=== PATIENT | male | born 1960 | race Caucasian/White ===

== ENCOUNTER 2025-04-21 08:15 | Inpatient (IN) | payer BC, SELFPAY ==
[2025-04-21] VITALS (71 sets, daily range): BP systolic 79–201; BP diastolic 50–130; PULSE 49–124; RESP 0–36; TEMP 36.3–36.6; O2SAT 54–99; BMI 35.6
--- NOTE | 2025-04-21 08:20 | EKG_ITS ---
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
--- NOTE | 2025-04-21 08:34 | EKG_ITS ---
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
--- NOTE | 2025-04-21 08:38 | XR_ITS ---
Examination: AP chest single view Technique one AP portable upright chest single view Date and time: April 21, 2025, 0843 hrs. Indications: Chest pain shortness of breath today. Findings: Mild to moderate CHF. Mild enlargement cardiac contour. Prominent vascular congestion. Bilateral septal pulmonary edema. Impression: Mild to moderate CHF.
--- NOTE | 2025-04-21 08:42 | PD.EDSOB ---
ED SOB =RME/HPI General Chief Complaint: Shortness of Breath/Dyspnea Stated Complaint: SOB since this morning Time Seen by Provider: 04/21/25 08:39 Arrival date/time: 04/21/25 08:15 RME / HPI RME / HPI Narrative: DR. GODWIN MAIN ED EVALUATION: This section includes all my notes and documentations, including HPI, PE, and ED course.? Fer Godwin MD HPI: 64 year old male with HTN here with several days of chest pressure and severely worsening dyspnea since yesterday. Uncertain about orthopnea. Increased leg swelling. No other complaints. ROS: All negative except as documented in HPI. Physical Exam: General: Appears lethargic with respiratory distress. Eyes:? Conjunctivae and lids clear. ENT:? No nasal congestion.? ? Neck:? Supple. Heart:? RRR. Lungs: Moderate respiratory distress.? Decreased air movement with rales. Abdomen:? Soft and nontender.? Skin:? Warm and dry.? Neuro:? Alert and oriented X 3.? I reviewed all diagnostic test results. My interpretation of the EKG is sinus rhythm with no acute ST?T changes. My interpretation of the chest x-ray is increased vascular congestion. Blood tests and urine tests remarkable for lactic acid 3.1, BNP 375. ABG showed pH 6.96, pCO2 84, and pHCO3 19. COVID/influenza negative. At this point, diagnoses include respiratory failure. Treatment here included intubation (see procedure note), DuoNeb and Solu-Medrol, Rocephin and Zithromax, metoprolol, morphine, and Lasix. For intubation, we needed etomidate and succinylcholine and rocuronium and propofol drip. I discussed the case with our senior project leader/team lead Dr. Levine.? About the presentation and exam and diagnostics and treatments here.? And need of further care in the hospital. Accepted the patient. Fer Godwin MD Related Data Allergies Allergy/AdvReac Type Severity Reaction Status Date / Time aspirin Allergy Verified 04/21/25 08:18 bee stings Allergy Uncoded 04/21/25 08:18 Course Quality Measures none Orders Category Date Time Status Admit to Inpatient Status Routine Admission 04/21/25 11:27 Active Patient Condition Routine Admission 04/21/25 11:27 Ordered Aspiration precautions NOW Care 04/21/25 11:28 Active Bedside COVID-19 Antigen Test NOW Care 04/21/25 08:34 Active Bedside Influenza A&B Antigen Test NOW Care 04/21/25 08:35 Completed COVID-19 Screening Questionnaire NOW Care 04/21/25 09:49 Active Continuous Pulse Oximetry NOW Care 04/21/25 11:27 Active Decision to Admit X1 Care 04/21/25 09:49 Completed EKG (ED ONLY) *Do not use* NOW Care 04/21/25 08:20 Completed Insert IV NOW Care 04/21/25 08:49 Completed Intubation NOW Care 04/21/25 09:25 Completed Miscellaneous Nursing Order NOW Care 04/21/25 11:27 Active NPO NOW Care 04/21/25 11:28 Active Notify provider NEEDED Care 04/21/25 11:27 Active Obtain weight daily Care 04/21/25 11:28 Active Saline [Insert IV] NOW Care 04/21/25 08:35 Active Sequential Compression Device QSHIFT Care 04/21/25 11:32 Active Strict Intake and Output Routine Care 04/21/25 11:28 Ordered Urinary Catheter QS Care 04/21/25 11:27 Active Diet NPO (NOW) Diet 04/21/25 11:28 Active CA echo doppler complete Stat Exams 04/21/25 11:32 Ordered EKG (ED Only) Stat Exams 04/21/25 08:20 Draft EKG (ED Only) Stat Exams 04/21/25 08:34 Stop Req XR chest 1V portable Stat Exams 04/21/25 08:38 Completed XR chest 1V post procedure Stat Exams 04/21/25 09:46 Completed ABG [Arterial Blood Gas] Stat Lab 04/21/25 09:37 Ordered ABG [Arterial Blood Gas] Stat Lab 04/21/25 09:53 Completed Alcohol, Blood Medical Stat Lab 04/21/25 08:45 Completed BNP [B-Type Natriuretic Peptide] Stat Lab 04/21/25 08:45 Completed Bilirubin,Direct Stat Lab 04/21/25 08:45 Completed Blood Culture (Lab) Stat Lab 04/21/25 09:51 Received CBC AM DRAW Lab 04/22/25 05:00 Ordered CBC AM DRAW Lab 04/23/25 05:00 Ordered CBC AM DRAW Lab 04/24/25 05:00 Ordered CBC AM DRAW Lab 04/25/25 05:00 Ordered CBC AM DRAW Lab 04/26/25 05:00 Ordered CBC AM DRAW Lab 04/27/25 05:00 Ordered CBC AM DRAW Lab 04/28/25 05:00 Ordered CBC Stat Lab 04/21/25 08:45 Completed CMP [Comprehensive Metabolic Panel] AM DRAW Lab 04/22/25 05:00 Ordered CMP [Comprehensive Metabolic Panel] AM DRAW Lab 04/23/25 05:00 Ordered CMP [Comprehensive Metabolic Panel] AM DRAW Lab 04/24/25 05:00 Ordered CMP [Comprehensive Metabolic Panel] AM DRAW Lab 04/25/25 05:00 Ordered CMP [Comprehensive Metabolic Panel] AM DRAW Lab 04/26/25 05:00 Ordered CMP [Comprehensive Metabolic Panel] AM DRAW Lab 04/27/25 05:00 Ordered CMP [Comprehensive Metabolic Panel] AM DRAW Lab 04/28/25 05:00 Ordered CMP [Comprehensive Metabolic Panel] Stat Lab 04/21/25 08:45 Completed CRP [C-Reactive Protein] Stat Lab 04/21/25 08:45 Completed D-Dimer Stat Lab 04/21/25 08:45 Completed Drug Screen,Urine Stat Lab 04/21/25 09:43 Completed ESR [Sed Rate (ESR)] Stat Lab 04/21/25 08:45 Completed Free T4 (Free Thyroxine) Stat Lab 04/21/25 08:45 Completed Lactate (Lactic Acid) Stat Lab 04/21/25 08:45 Results Magnesium AM DRAW Lab 04/22/25 05:00 Ordered Magnesium AM DRAW Lab 04/23/25 05:00 Ordered Magnesium AM DRAW Lab 04/24/25 05:00 Ordered Magnesium AM DRAW Lab 04/25/25 05:00 Ordered Magnesium AM DRAW Lab 04/26/25 05:00 Ordered Magnesium AM DRAW Lab 04/27/25 05:00 Ordered Magnesium AM DRAW Lab 04/28/25 05:00 Ordered Magnesium Stat Lab 04/21/25 08:45 Completed PT [Prothrombin Time with INR] Stat Lab 04/21/25 08:45 Completed PTT [Partial Thromboplastin Time] Stat Lab 04/21/25 08:45 Completed Phosphorous AM DRAW Lab 04/22/25 05:00 Ordered Phosphorous AM DRAW Lab 04/23/25 05:00 Ordered Phosphorous AM DRAW Lab 04/24/25 05:00 Ordered Phosphorous AM DRAW Lab 04/25/25 05:00 Ordered Phosphorous AM DRAW Lab 04/26/25 05:00 Ordered Phosphorous AM DRAW Lab 04/27/25 05:00 Ordered Phosphorous AM DRAW Lab 04/28/25 05:00 Ordered Procalcitonin Stat Lab 04/21/25 08:45 Completed Sputum Culture and Gram Stain Stat Lab 04/21/25 09:48 Received TSH [Thyroid Stimulating Hormone] Stat Lab 04/21/25 08:45 Completed Troponin I Stat Lab 04/21/25 08:45 Completed UA, C/S IF [Urinalysis, C/S if Indicated] Stat Lab 04/21/25 09:41 Completed Acetaminophen Tab [Tylenol Tab] Med 04/21/25 11:27 Active 650 mg PO Q6H PRN Albuterol/Ipratr Rt Sheryl [Duoneb Rt Sheryl] Med 04/21/25 08:35 Discontinued 3 ml INH X1 ONE Azithromycin Inj [Zithromax Inj] 500 mg Med 04/21/25 09:51 Discontinued Sodium Chloride 0.9% 250 ml [Ns] 250 ml IV X1 Etomidate Inj [Amidate Inj] Med 04/21/25 09:15 Discontinued 20 mg .ROUTE .STK-MED ONE Etomidate Inj [Amidate Inj] Med 04/21/25 09:19 Discontinued 40 mg IVP X1 ONE Furosemide Inj [Lasix Inj] Med 04/21/25 10:19 Discontinued 80 mg IVP X1 ONE Heparin Inj Med 04/21/25 14:00 Active 5,000 unit SC Q8HR MethylPREDNISolone.* [SoluMEDROL Inj] Med 04/21/25 08:35 Discontinued 125 mg IVP X1 ONE Metoprolol Tartrate Inj [Lopressor Inj] Med 04/21/25 08:35 Discontinued 5 mg IVP X1 ONE Morphine Inj Med 04/21/25 08:37 Discontinued 2 mg IVP X1 ONE Pantoprazole Inj [Protonix Inj] Med 04/21/25 11:30 Active 40 mg IVP QDAY Propofol 1,000 mg Ivpb [Diprivan Ivpb] Med 04/21/25 09:30 Active 1,000 mg in 100 ml IV 5 mcg/kg/min Rocuronium Inj [Zemuron Inj] Med 04/21/25 09:21 Discontinued 100 mg .ROUTE .STK-MED ONE Rocuronium Inj [Zemuron Inj] Med 04/21/25 09:29 Discontinued 100 mg IV X1 ONE Rocuronium Inj [Zemuron Inj] Med 04/21/25 09:29 Discontinued 100 mg IV X1 ONE Senna [Senokot] Med 04/21/25 11:27 Active 1 tab PO BID PRN Succinylcholine Inj [Anectine Inj] Med 04/21/25 09:19 Discontinued 200 mg IV X1 ONE cefTRIAXone/D5w 1gm IV premix [Rocephin/D5w 1gm IV Med 04/21/25 09:51 Discontinued premix] 1 gm in 50 ml IV X1 Code Status Routine Oth 04/21/25 11:27 Ordered Mechanical [Volume Ventilator] Stat RT 04/21/25 Active Vital Signs Vital signs: Vital Signs Temperature 97.8 F 04/21/25 08:25 Pulse Rate 113 H 04/21/25 08:25 Blood Pressure 174/101 H 04/21/25 08:25 Pulse Oximetry (%) 88 L 04/21/25 08:25 Oxygen Delivery Method Room Air 04/21/25 08:25 PROCEDURES: Intubation Time out performed: Yes sedative: Etomidate Mg Given: 30 paralytic: Succinylcholine Mg Given: 200 Laryngoscope: Hany (#4) Assist Device Used: other (glidescope) ET Tube Size: 7.5 ET Tube Uncuffed: No Tube Secured Depth (cm): 24 Tube Secured Location: teeth Tube Placement Confirmation: visualized tube passing through cords, equal breath sounds bilaterally, no breath sounds over epigastrium and confirmation by capnometry Patient Tolerated Procedure: well and no complications Intubation Complications: none Shortness of Breath / Dyspnea MDM Narrative MDM Narrative:: Renée Munoz am scribing for and in the presence of Dr. Godwin. 64 year old male with past medical history for hypertension coming in for chest pain onset several days and shortness of breath since yesterday. No other complaints reported. Patient data External records reviewed:: None (no previous visits) Clinical information provided by:: patient Social determinants that could affect healthcare access:: none Patient has the following chronic illnesses:: hypertension How is presenting disease/condition affected by chronic disease/condition?: exacerbated by Evaluation data The following diagnostics were reviewed and interpreted by me:: lab results, radiology exam(s) and EKG tracing(s) Lab and/or radiology exams considered but not ordered:: none Interpretation Summary: I reviewed all diagnostic test results. My interpretation of the EKG is sinus rhythm with no acute ST?T changes. My interpretation of the chest x-ray is increased vascular congestion. Blood tests and urine tests remarkable for lactic acid 3.1, BNP 375. ABG showed pH 6.96, pCO2 84, and pHCO3 19. COVID/influenza negative. Medications / Prescriptions Medications or Prescriptions considered but not ordered:: none Medication administrations:: Medication Administration History Acetaminophen (Acetaminophen 325 Mg Tablet) 650 mg PO Q6H PRN PRN Reason: Pain (1-3) & Fever >100.4 Stop: 05/21/25 11:26 Heparin Sodium (Porcine) (Heparin Sod Inj 5000 Unit/Ml Vial) 5,000 unit SC Q8HR [facility] Stop: 05/05/25 13:59 Propofol (Diprivan Ivpb) 1,000 mg in 100 mls @ 3.377 mls/hr IV .Q24H PRN; Protocol PRN Reason: PER PROTOCOL Stop: 05/21/25 09:29 Last Titration: 04/21/25 09:50 Dose: 20 mcg/kg/min, 13.51 mls/hr Documented By: Titration: 04/21/25 09:45 Dose: 15 mcg/kg/min, 10.132 mls/hr Documented By: Titration: 04/21/25 09:40 Dose: 10 mcg/kg/min, 6.755 mls/hr Documented By: Admin: 04/21/25 09:35 Dose: 5 mcg/kg/min, 3.377 mls/hr Documented By: VG Co-signed By: DO Pantoprazole Sodium (Pantoprazole Inj 40 Mg Vial) 40 mg IVP QDAY [facility] Stop: 05/21/25 11:29 Sennosides (Senna Tablet) 1 tab PO BID PRN; Protocol PRN Reason: CONSTIPATION Stop: 05/21/25 11:26 Discontinued Medications Albuterol/Ipratropium (Albuterol/Ipratropium (Duoneb) Rt Sheryl 3 Ml Nebu) 3 ml INH X1 ONE Stop: 04/21/25 08:36 Last Admin: 04/21/25 10:32 Dose: Not Given Documented By: VG Non-Admin Reason: Discontinued Etomidate (Etomidate Inj 2 Mg/Ml Vial 10 Ml) 40 mg IVP X1 ONE Stop: 04/21/25 09:20 Last Admin: 04/21/25 09:22 Dose: 40 mg Documented By: VG Etomidate (Etomidate Inj 2 Mg/Ml Vial 10 Ml) Confirm Administered Dose 20 mg .ROUTE .STK-MED ONE Stop: 04/21/25 09:16 Last Admin: 04/21/25 09:28 Dose: Not Given Documented By: VG Non-Admin Reason: Duplicate Medication on eMAR Furosemide (Furosemide Inj 10 Mg/Ml 4ml Vial) 80 mg IVP X1 ONE Stop: 04/21/25 10:20 Last Admin: 04/21/25 10:38 Dose: 80 mg Documented By: VG Azithromycin 500 mg/ Sodium (Chloride) 250 mls @ 250 mls/hr IV X1 ONE Stop: 04/21/25 10:50 Last Admin: 04/21/25 11:09 Dose: 250 mls/hr Documented By: VG Ceftriaxone Sodium/Dextrose (Rocephin/D5w 1gm Iv Premix) 1 gm in 50 mls @ 100 mls/hr IV X1 ONE Stop: 04/21/25 10:20 Last Infusion: 04/21/25 11:00 Dose: Infused Documented By: Admin: 04/21/25 10:18 Dose: 100 mls/hr Documented By: VG Methylprednisolone Sodium Succinate (Methylprednisolone Sod Succ 62.5 Mg/Ml 2ml Vial) 125 mg IVP X1 ONE Stop: 04/21/25 08:36 Last Admin: 04/21/25 09:08 Dose: 125 mg Documented By: VG Metoprolol Tartrate (Metoprolol Tartrate Inj 1 Mg/Ml Amp 5 Ml) 5 mg IVP X1 ONE Stop: 04/21/25 08:36 Last Admin: 04/21/25 09:05 Dose: 5 mg Documented By: VG Morphine Sulfate (Morphine Sulf Inj 10 Mg/Ml Vial) 2 mg IVP X1 ONE Stop: 04/21/25 08:38 Last Admin: 04/21/25 09:11 Dose: 2 mg Documented By: VG Rocuronium Protivin (Rocuronium Inj 10 Mg/Ml Vial 10 Ml) 100 mg IV X1 ONE Stop: 04/21/25 09:30 Last Admin: 04/21/25 09:30 Dose: 100 mg Documented By: DINESH Co-signed By: NORAH Rocuronium Protivin (Rocuronium Inj 10 Mg/Ml Vial 10 Ml) 100 mg IV X1 ONE Stop: 04/21/25 09:30 Last Admin: 04/21/25 09:33 Dose: Not Given Documented By: DINESH Non-Admin Reason: Duplicate Medication on eMAR Rocuronium Protivin (Rocuronium Inj 10 Mg/Ml Vial 10 Ml) Confirm Administered Dose 100 mg .ROUTE .STK-MED ONE Stop: 04/21/25 09:22 Last Admin: 04/21/25 09:32 Dose: Not Given Documented By: DINESH Non-Admin Reason: Duplicate Medication on eMAR Succinylcholine Chloride (Succinylcholine Inj 20 Mg/Ml Vial 10 Ml) 200 mg IV X1 ONE Stop: 04/21/25 09:20 Last Admin: 04/21/25 09:23 Dose: 200 mg Documented By: DINESH Treatment here included intubation (see procedure note), DuoNeb and Solu-Medrol, Rocephin and Zithromax, metoprolol, morphine, and Lasix. For intubation, we needed etomidate and succinylcholine and rocuronium and propofol drip. Consultations Consultation(s) initiated? (list below): Yes Consultation #1 (Physician, Specialty, Details): I discussed the case with our senior project leader/team lead Dr. Levine.? About the presentation and exam and diagnostics and treatments here.? And need of further care in the hospital. Accepted the patient. Diagnosis Shortness of Breath Differential Diagnosis: acute exacerbation of chronic obstructive airways disease, congestive heart failure, community acquired pneumonia, asthma with exacerbation, pulmonary embolism and other (NE, sepsis) Most likely diagnosis given after review of the tests above:: Respiratory failure Admission Indicated Admission indicated?: indicated Explain why admission is indicated or not indicated:: Respiratory failure Admission Request Was there a request for admission?: Yes Admission Attestation Admission request attestation: Discussed case with ICU service service regarding admission. Discussed patients ED course, exam findings, labs, and radiology results. Agreed to accept the patient for admission. Disposition Plan Disposition Plan: Admit (ICU) Critical Care Time Critical Care Time Critical Care Time: Yes Total Critical Care Time (min.): 42 Attestation: Due to a high probability of clinically significant, life threatening deterioration, the patient required my highest level of preparedness to intervene emergently and I personally spent this critical care time directly and personally managing the patient. This critical care time included obtaining a history; examining the patient; ordering and review of studies; arranging urgent treatment with development of a management plan; evaluation of patient's response to treatment; frequent reassessment; and discussions with family and other providers. It was exclusive of separately billable procedures and treating other patients and teaching time. Fer Godwin MD Discharge Plan Plan Patient Disposition: Admit Acute Care w/in Hospital Prescriptions/Referrals Referrals: Babak Downing FNP [Primary Care Provider] - In 1 week Problem List Clinical Impression: Respiratory failure Patient/Caregiver Discharge Instructions Print Language: Kyrgyz Stand Alone Forms: Maranda Award Info., Patient Portal Info Letter
--- NOTE | 2025-04-21 08:42 | PD.EDSOB ---
ED SOB =RME/HPI General Chief Complaint: Shortness of Breath/Dyspnea Stated Complaint: SOB since this morning Time Seen by Provider: 04/21/25 08:39 Arrival date/time: 04/21/25 08:15 RME / HPI RME / HPI Narrative: DR. VELA MAIN ED EVALUATION: This section includes all my notes and documentations, including HPI, PE, and ED course.? Fer Vela MD HPI: No other complaints reported. ROS: All negative except as documented in HPI. Physical Exam: General:? Alert and oriented.? No acute distress when remaining still.? Eyes:? Conjunctivae and lids clear. ENT:? No nasal congestion.? ? Neck:? Supple. Heart:? RRR. Lungs:? No respiratory distress.? Good air movement.? No rhonchi, wheezing, rales.? Abdomen:? Soft and nontender.? Legs:? No clubbing, cyanosis, edema. Skin:? Warm and dry.? Neuro:? Alert and oriented X 3.? I reviewed all diagnostic test results. My interpretation of the EKG is? My interpretation of the chest x-ray is My review of the CT report is? Blood tests and urine tests At this point, diagnoses include Treatment here included Significant improvement Not yet done: I discussed the case with our hospitalist.? About the presentation and exam and diagnostics and treatments here.? And need of further care in the hospital. Will accept the patient. Not yet done: Based on my best medical judgment, made decision no further evaluation or treatment indicated at this time.? Patient understands and agrees to the discharge instructions customized and printed, see below. Fer Vela MD Related Data Allergies Allergy/AdvReac Type Severity Reaction Status Date / Time aspirin Allergy Verified 04/21/25 08:18 bee stings Allergy Uncoded 04/21/25 08:18 Course Orders Category Date Time Status Bedside COVID-19 Antigen Test NOW Care 04/21/25 08:34 Active Bedside Influenza A&B Antigen Test NOW Care 04/21/25 08:[address] Screening NOW Care 04/21/25 08:38 Active EKG (ED ONLY) *Do not use* NOW Care 04/21/25 08:20 Completed Saline [Insert IV] NOW Care 04/21/25 08:35 Active Straight [In and Out Catheter] X1 Care 04/21/25 08:[address] angio chest Stat Exams 04/21/25 08:38 Ordered EKG (ED Only) Stat Exams 04/21/25 08:20 Draft EKG (ED Only) Stat Exams 04/21/25 08:34 Stop Req XR chest 1V portable Stat Exams 04/21/25 08:38 Ordered ABG [Arterial Blood Gas] Stat Lab 04/21/25 08:38 Ordered Alcohol, Blood Medical Stat Lab 04/21/25 08:38 Ordered BNP [B-Type Natriuretic Peptide] Stat Lab 04/21/25 08:38 Ordered Bilirubin,Direct Stat Lab 04/21/25 08:38 Ordered Blood Culture (Lab) Stat Lab 04/21/25 08:38 Ordered CBC Stat Lab 04/21/25 08:38 Ordered CMP [Comprehensive Metabolic Panel] Stat Lab 04/21/25 08:38 Ordered CRP [C-Reactive Protein] Stat Lab 04/21/25 08:38 Ordered D-Dimer Stat Lab 04/21/25 08:38 Ordered Drug Screen,Urine Stat Lab 04/21/25 08:38 Ordered ESR [Sed Rate (ESR)] Stat Lab 04/21/25 08:38 Ordered Free T4 (Free Thyroxine) Stat Lab 04/21/25 08:38 Ordered Lactate (Lactic Acid) Stat Lab 04/21/25 08:39 Ordered Magnesium Stat Lab 04/21/25 08:38 Ordered PT [Prothrombin Time with INR] Stat Lab 04/21/25 08:39 Ordered PTT [Partial Thromboplastin Time] Stat Lab 04/21/25 08:39 Ordered Procalcitonin Stat Lab 04/21/25 08:39 Ordered TSH [Thyroid Stimulating Hormone] Stat Lab 04/21/25 08:38 Ordered Troponin I Stat Lab 04/21/25 08:38 Ordered UA, C/S IF [Urinalysis, C/S if Indicated] Stat Lab 04/21/25 08:39 Ordered Albuterol/Ipratr Rt Sheryl [Duoneb Rt Sheryl] Med 04/21/25 08:35 Once 3 ml INH X1 ONE MethylPREDNISolone.* [SoluMEDROL Inj] Med 04/21/25 08:35 Once 125 mg IVP X1 ONE Metoprolol Tartrate Inj [Lopressor Inj] Med 04/21/25 08:35 Once 5 mg IVP X1 ONE Morphine Inj Med 04/21/25 08:37 Once 2 mg IVP X1 ONE Vital Signs Vital signs: Vital Signs Temperature 97.8 F 04/21/25 08:25 Pulse Rate 113 H 04/21/25 08:25 Blood Pressure 174/101 H 04/21/25 08:25 Pulse Oximetry (%) 88 L 04/21/25 08:25 Oxygen Delivery Method Room Air 04/21/25 08:25 Shortness of Breath / Dyspnea Evaluation data The following diagnostics were reviewed and interpreted by me:: EKG tracing(s) (My interpretation of the EKG is: Difficult rhythm (108 bpm) with PVCs and nonspecific ST-T changes. Fer Vela MD) Medications / Prescriptions Medication administrations:: Medication Administration History Albuterol/Ipratropium (Albuterol/Ipratropium (Duoneb) Rt Sheryl 3 Ml Nebu) 3 ml INH X1 ONE Stop: 04/21/25 08:36 Methylprednisolone Sodium Succinate (Methylprednisolone Sod Succ 62.5 Mg/Ml 2ml Vial) 125 mg IVP X1 ONE Stop: 04/21/25 08:36 Metoprolol Tartrate (Metoprolol Tartrate Inj 1 Mg/Ml Amp 5 Ml) 5 mg IVP X1 ONE Stop: 04/21/25 08:36 Morphine Sulfate (Morphine Sulf Inj 10 Mg/Ml Vial) 2 mg IVP X1 ONE Stop: 04/21/25 08:38 Discharge Plan Patient/Caregiver Discharge Instructions Print Language: Vietnamese
[2025-04-21] MEDS: METOPROLOL TARTRATE INJ 1 MG/ML AMP 5 ML 5 MG IVP (09:05)
[2025-04-21] MEDS: MethylPREDNISolone SOD SUCC 62.5 MG/ML 2ML VIAL 125 MG IVP (09:08)
[2025-04-21] MEDS: MORPHINE SULF INJ 10 MG/ML VIAL 2 MG IVP (09:11)
[2025-04-21] MEDS: ETOMIDATE INJ 2 MG/ML VIAL 10 ML 40 MG IVP (09:22)
[2025-04-21] MEDS: SUCCINYLCHOLINE INJ 20 MG/ML VIAL 10 ML 200 MG IV (09:23)
[2025-04-21] MEDS: ROCURONIUM INJ 10 MG/ML VIAL 10 ML 100 MG IV (09:30)
[2025-04-21] MEDS: PROPOFOL 1,000 MG IVPB 1,000 MG/100 ML VIAL 3.377 MG IV (09:35)
[2025-04-21 09:37] LABS: Lactate (Lactic Acid) 3.1 mMol/L (0.4-2.0)
--- NOTE | 2025-04-21 09:46 | XR_ITS ---
Examination: AP chest single view Technique one AP portable supine chest single view Date and time: April 21, 2025, 1006 hrs. Comparison April 21, 2025 0834 hrs. Indications: Post orogastric tube placement Findings: Orogastric tube in the stomach satisfactory position Moderate CHF Mild to moderate enlargement cardiac contour with prominent vascular congestion and perihilar edema Prominent osteopenia Impression: Moderate CHF Orogastric tube in the stomach satisfactory position
--- NOTE | 2025-04-21 09:49 | PC.CC ---
Animal Groomer (FALGUNI) Francy notified by wax pumper-Lanise that patient's family member was at bedside. SW met with patient's friend, Emi who reported that patient has a father, Valdemar and brother, Goldy. SW provided emotional support. Emi did take patient's belongings with him: clothes, black cellphone, slippers. SW provided number to the ED for any upodates.
[2025-04-21 09:58] LABS: Base Excess -15 (-3-3); HCO3 19 mEq/L (20-26); PCO2 84 mmHg (32.0-48.0)
[2025-04-21 09:59] LABS: Allen Test Not Performed; Inspired Oxygen, FIO2 100 %; O2 Saturation 75 % (91-98)
[2025-04-21 10:00] LABS: Basophils # (Auto) 0.0 Thou/mm3 (0.0-0.2); Basophils % (Auto) 0 % (0-2.5); Eosinophils # (Auto) 0.2 Thou/mm3 (0.0-0.5); Eosinophils % (Auto) 2 % (0-10); Hematocrit 45.9 % (41.0-53.0); Hemoglobin 15.6 g/dL (13.5-16.0); Immature Granulocytes Auto 0.05 Thou/mm3 (0.00-0.00); Lymphocytes # (Auto) 3.1 Thou/mm3 (1.0-4.8); Lymphocytes % (Auto) 31 % (10-50); Mean Corpuscular HGB Conc 34.0 g/dl (31.0-37.0); Mean Corpuscular Hemoglobin 29.6 pg (25.0-35.0); Mean Corpuscular Volume 87 fL (80-100); Monocytes # (Auto) 0.6 Thou/mm3 (0.0-0.8); Monocytes % (Auto) 6 % (0-12); Neutrophils # (Auto) 6.1 Thou/mm3 (1.8-7.7); Neutrophils % (Auto) 61 % (37-80); Nucleated Red Blood Cell # 0.00 Thou/mm3 (0.00-0.00); Nucleated Red Blood Cell % 0 /100 WBC (0); Platelet Count 242 Thou/mm3 (140-440); RDW Standard Deviation 39.4 fL (35.1-43.9); Red Blood Count 5.27 Miln/mm3 (4.50-5.90); White Blood Count 10.1 Thou/mm3 (3.8-10.6)
[2025-04-21 10:03] LABS: pH, Arterial 6.96 (7.35-7.45)
[2025-04-21 10:04] LABS: PO2 56 mmHg (83-108)
[2025-04-21 10:07] LABS: INR 1.0 (0.9-1.3); Partial Thromboplastin Time 27.0 Seconds (22.0-36.0); Prothrombin Time 11.2 Seconds (9.0-12.2)
[2025-04-21 10:10] LABS: Collection Type, Urine Clean Catch; WBC,Urine 0 /hpf (0-5)
[2025-04-21] MEDS: cefTRIAXone/D5w 1gm IV premix 1 GM/50 ML BAG IV (10:18)
[2025-04-21 10:20] LABS: Alanine Aminotransferase 14 U/L (10-49); Albumin, Serum 4.6 gm/dL (3.4-4.8); Albumin/Globulin Ratio 1.5 (1.2-2.2); Alcohol, Blood Medical < 3.0 mg/dL (0-10.0); Alkaline Phosphatase 114 U/L (46-116); Anion Gap 14 (7-16); Aspartate Amino Transferase 22 U/L (0-34); BUN/Creatinine Ratio 15 Ratio (12-20); Bilirubin,Direct 0.3 mg/dL (0.0-0.3); Bilirubin,Total 0.9 mg/dL (0.3-1.2); Blood Urea Nitrogen 15 mg/dL (9-23); C-Reactive Protein < 0.5 mg/dL (0.0-0.9); Calcium 9.2 mg/dL (8.3-10.6); Calcium (Corrected) 9.2 mg/dL (8.5-10.1); Carbon Dioxide 22.8 mMol/L (20.0-31.0); Chloride 105 mMol/L (98-107); Creatinine (Component) 1.0 mg/dL (0.6-1.3); Estimated Creatinine Clearance 93.8 mL/min (>60); Free T4 (Free Thyroxine) 1.35 ng/dL (0.89-1.76); Globulin 3.1 gm/dL (2.3-3.5); Glucose 179 mg/dL (74-106); Magnesium 2.1 mg/dL (1.6-2.6); Osmolality,Calculated 287 (275-295); Potassium 3.4 mMol/L (3.4-5.1); Procalcitonin 0.05 ng/ml (0.0-0.49); Sodium 142 mMol/L (136-145); Thyroid Stimulating Hormone 1.74 uIU/mL (0.55-4.78); Total Protein 7.7 gm/dL (5.7-8.2); Troponin I 0.020 ng/mL (0.0-0.045); eGFR > 60 See Note
[2025-04-21 10:37] LABS: Amphetamine/Methamp Scrn,U Negative (Negative); Barbiturate Screen,Urine Negative (Negative); Benzodiazepines Screen,Urine Negative (Negative); Benzoylecgonine Screen, Ur Negative (Negative); Fentanyl Screen,Urine Negative (Negative); Opiate Screen,Urine Positive (Negative); THC Screen,Urine Positive (Negative)
[2025-04-21 10:38] LABS: Bacteria,Urine Rare; Bilirubin,Urine Negative (Negative); Blood,Urine 1+ (Negative); Clarity,Urine Clear (Clear/Hazy); Color,Urine Yellow (Lt Yel-Yel); Culture Indicated,Urine Not Indicated; Glucose, Urine Negative (Negative); Hyaline Casts,Urine < 1 /hpf (0-1); Ketones,Urine 1+ (Negative); Leukocyte Esterase,Urine Negative (Negative); Nitrite,Urine Negative (Negative); PH,Urine 6.0 (5.0-7.0); Protein,Urine 3+ (Neg - Trace); RBC,Urine 11 /hpf (0-3); Specific Gravity,Urine 1.030 (1.001-1.035); Squamous Epithelial Cell,Urine < 1 /hpf (0-5); Urobilinogen,Urine Negative mg/dL (0.0-1.0)
[2025-04-21] MEDS: FUROSEMIDE INJ 10 MG/ML 4ML VIAL 80 MG IVP (10:38)
[2025-04-21 10:45] LABS: D-Dimer 435 ng/mL (<600)
[2025-04-21 10:52] LABS: Sed Rate (ESR) 19 mm/hr (0-20)
[2025-04-21 10:53] LABS: B-Type Natriuretic Peptide 375 pg/mL (0-100)
[2025-04-21] MEDS: AZITHROMYCIN INJ 500 MG in SODIUM CHLORIDE 0.9% 250 ML 250 ML 250 MG IV (11:09)
--- NOTE | 2025-04-21 11:32 | ECHO_ITS ---
Transthoracic Echo Report Ht (in): 70 Wt (lb): 248 Exam Location: Echo Lab Status: Emergency Senior Compensation Analyst: Susana Hdz Indications: Procedure Performed: BP: 107 / 57 HR: 53 Technical Quality: Very technically difficult study MEASUREMENTS (Male / Female) Normal Values 2D ECHO LV Diastolic Diameter PLAX 4.7 cm 4.2 - 5.9 / 3.9 - 5.3 cm LV Systolic Diameter PLAX 3.8 cm IVS Diastolic Thickness 1.2 cm 0.6 - 1.0 / 0.6 - 0.9 cm LVPW Diastolic Thickness 1.3 cm 0.6 - 1.0 / 0.6 - 0.9 cm LV Relative Wall Thickness 0.5 LVOT Diameter 2.3 cm Aortic Root Diameter 3.3 cm LA Systolic Diameter LX 3.7 cm 3.0 - 4.0 / 2.7 - 3.8 cm LV Ejection Fraction MOD 4C 44.4 % LV Cardiac Index MOD 4C 1098.2 cm?/min?m? LV Ejection Fraction 4C AL 44.0 % LV Cardiac Index 4C AL 1095.3 cm?/min?m? LA Volume Index 21.9 cm?/m? 16 - 28 cm?/m? DOPPLER AV Peak Velocity 80.6 cm/s AV Peak Gradient 2.6 mmHg AV Mean Gradient 2.0 mmHg AV Velocity Time Integral 21.2 cm LVOT Peak Velocity 91.6 cm/s LVOT Peak Gradient 3.4 mmHg LVOT Velocity Time Integral 22.1 cm LVOT Cardiac Index 2029.0 cm?/min?m? AV Area Cont Eq vti 4.3 cm? AV Area Cont Eq pk 4.7 cm? MV Area PHT 3.1 cm? Mitral E Point Velocity 49.5 cm/s Mitral A Point Velocity 28.1 cm/s Mitral E to A Ratio 1.8 LV E' Lateral Velocity 7.8 cm/s Mitral E to LV E' Lateral Ratio 6.3 LV E' Septal Velocity 5.0 cm/s Mitral E to LV E' Septal Ratio 9.9 FINDINGS Left Ventricle Normal left ventricular size. Mild LVH. Normal left ventricular diastolic filling pattern for age. The ejection fraction is visually estimated at 50-55% Right Ventricle The right ventricle is mildly enlarge with normal in size and systolic function. Left Atrium The left atrium is normal by two-dimensional, color flow and Doppler imaging with no structural abnormalities, no thrombus formation present. Right Atrium The right atrium is normal by two-dimensional imaging, color flow and Doppler imaging with no structural abnormalities, no thrombus formation present. Atrial Septum The interatrial septum appears normal with no evidence of a shunt. Aorta The aorta is normal by two-dimensional, color flow and Doppler interrogation. Mitral Valve The mitral valve is normal by two-dimensional, color flow and Doppler interrogation.trace mitral regurgitation. Aortic Valve The aortic valve is trileaflet and normal by two-dimensional, color flow and Doppler interrogation. There is no significant aortic valve regurgitation. Tricuspid Valve The tricuspid valve is not well visualized. Pulmonic Valve The pulmonic valve is not well visualized. There is no significant pulmonic valve regurgitation. Vessels Dilated inferior vena cava. Pericardium The pericardium is normal by two-dimensional imaging. There is no significant pericardial effusion. CONCLUSIONS Indication: AHRF. All the cardiac structures suboptimally visualized. Normal left ventricular size and function. Approximate ejection fraction is 50-55%. No wall motion abnormalities The RV is mildly enlarge with normal in size and systolic function. Trace MR. Dilated IVC. Kelsea Cowan (Electronically Signed) Final Date: 22 April 2025 14:53
[2025-04-21 12:36] LABS: Reflex Lactate? Y
[2025-04-21] MEDS: ENALAPRILAT INJ 1.25 MG/ML VIAL IVP (12:36)
[2025-04-21] MEDS: POTASSIUM CHLORIDE 10% 20 MEQ/15 ML UDC 40 MEQ GT (12:37)
[2025-04-21 12:42] LABS: Base Excess -7 (-3-3); HCO3 23 mEq/L (20-26); Inspired Oxygen, FIO2 60 %; O2 Saturation 93 % (91-98); PCO2 66 mmHg (32.0-48.0); PO2 80 mmHg (83-108)
[2025-04-21 12:44] LABS: Allen Test Performed/OK; Puncture Site Right Radial
[2025-04-21 12:44] LABS: Glucose Estimated Average 114 mg/dL (80-131); Hemoglobin A1C 5.6 % Hgb (4.8-6.0)
[2025-04-21 12:45] LABS: pH, Arterial 7.15 (7.35-7.45)
[2025-04-21] MEDS: POTASSIUM CHL 10 mEq IVPB 10 MEQ/100 ML BAG 100 MEQ IV ×2 (12:52→13:54)
[2025-04-21 13:07] LABS: Lactic Acid, 3 HR 3.1 mMol/L (0.4-2.0)
[2025-04-21] MEDS: fentaNYL 2,500 MCG/250 ML BAG 2,500 MCG/250 ML BAG IV (13:15)
[2025-04-21] MEDS: PROPOFOL 1,000 MG IVPB 1,000 MG/100 ML VIAL 33.775 MG IV (13:35)
[2025-04-21] MEDS: HEPARIN SOD INJ 5000 UNIT/ML VIAL SC (13:54)
--- NOTE | 2025-04-21 15:55 | ESHP_ITS ---
Documentation for date of: 04/21/25 HPI History of Present Illness Chief complaint: Shortness of breath History of present illness: HPI: Mr. Sarmiento is a 64-year-old male with past medical history of hypertension hyperlipidemia depression and chronic pain who presented to [facility] emergency department on 04/21/2025 with a chief complaint of worsening dyspnea. Patient on examination in ED is on mechanical ventilation, most of the history obtained from friend at bedside. Per patient's friend patient has been experiencing worsening shortness of breath since the last week, patient has progressive shortness of breath became severe to the point that he decided to come to the emergency department, he also complained of increased leg swelling. Per chart review patient also complained of several days of chest pressure, was alert and oriented x 3 in the ED patient's ABG showed pH 6.96, pCO2 84 considering patient's underlying respiratory failure intubated by ED physician and ICU was consulted for admission. ED Course: The patient was intubated in the emergency department using etomidate succinylcholine and rocuronium and placed on a propofol drip. He was treated with DuoNeb Solu-Medrol, Rocephin, Zithromax, metoprolol, morphine, and Lasix. EKG demonstrated a normal sinus rhythm with no acute ST changes. -Initial Vitals: Vitals upon arrival were temp 97.8, pulse 113, blood pressure 174/101, pulse ox 88% on room air. -Labs Significant for: Blood tests and urine tests remarkable for lactic acid 3.1, BNP 375. ABG showed pH 6.96, pCO2 84, and pHCO3 19. COVID/influenza negative. -Imaging: Chest x-ray significant for, moderate CHF, mild to moderate enlargement cardiac contour with prominent vascular congestion and perihilar edema -Patient admitted to ICU for respiratory failure. Patient was intubated in the emergency department and placed on propofol and fentanyl drip and transfered to ICU for further care. Review of Systems Review of Systems ROS Unobtainable: due to endotracheal tube Past Medical History Past Medical History Comments PMH COMMENT: History: -Past Medical History: Hypertension -Surgical History: Appendicitis -Family History: No known family history -Social History: Social drinker, no smoking or illicit drugs history. -Current Medications: Lisinopril, atorvastatin, sertraline, Aline -Allergies: Aspirin -Source of History: Friend Exam Vital Signs Temp Pulse Resp BP Pulse Ox O2 Del Method O2 Flow Rate 97.6 F 59 L 17 107/77 99 Mechanical Ventilation 6 04/21/25 15:20 04/21/25 15:46 04/21/25 15:20 04/21/25 15:46 04/21/25 15:46 04/21/25 15:20 04/21/25 10:00 FiO2 60 04/21/25 15:46 Narrative Exam General: Neurologic: Intubated, sedated, GCS 3T HEENT: Normocephalic, atraumatic, mucous membranes moist. Heart: Bradycardic, regular rhythm,, normal S1 and S2, no murmurs. Lungs: Clear to auscultation bilaterally with no wheezing or crackles. Abdomen: Obese, soft, nondistended, nontender, positive bowel sounds. Extremities: 2+ pitting edema in the lower extremities bilaterally below the knee. 2+ radial and dorsalis pedis pulses bilaterally. Skin: Warm. Dry. Venous stasis dermatitis anterior right lower extremity below the knee larger than 5 cm in diameter. Results: Labs 04/22/25 02:53 04/22/25 07:00 Labs: Short CBC 04/21/25 Range/Units 08:45 WBC 10.1 (3.8-10.6) Thou/mm3 Hgb 15.6 (13.5-16.0) g/dL Hct 45.9 (41.0-53.0) % Plt Count 242 (140-440) Thou/mm3 BMP 04/21/25 08:45 Sodium 142 Potassium 3.4 Chloride 105 Carbon Dioxide 22.8 BUN 15 Creatinine 1.0 Glucose 179 H Calcium 9.2 Cardiac Enzymes 04/21/25 Range/Units 08:45 Troponin I 0.020 (0.0-0.045) ng/mL Liver Function 04/21/25 Range/Units 08:45 Total Bilirubin 0.9 (0.3-1.2) mg/dL Direct Bilirubin 0.3 (0.0-0.3) mg/dL AST 22 (0-34) U/L ALT 14 (10-49) U/L Alkaline Phosphatase 114 (46-116) U/L Albumin 4.6 (3.4-4.8) gm/dL Urine 07/05/25 Range/Units 09:41 Urine Color Yellow (Lt Yel-Yel) Urine Clarity Clear (Clear/Hazy) Urine pH 6.0 (5.0-7.0) Ur Specific Lawrence 1.030 (1.001-1.035) Urine Protein 3+ A (Neg - Trace) Urine Glucose (UA) Negative (Negative) ABG Interpretation ABG results: 04/21/25 04/21/25 09:53 12:36 ABG pH 6.96 L* 7.15 L* D ABG pCO2 84 H* 66 H D ABG pO2 56 L* 80 L D ABG HCO3 19 L 23 ABG O2 Saturation 75 L 93 ABG Base Excess -15 L -7 L Quality Measures Quality Measures none Medications Home Medications and Allergies Home Medications ?Medication ?Instructions ?Recorded ?Confirmed ?Type atorvastatin 20 mg tablet 20 mg PO .q day 04/21/2503/11 History hydrocodone 10 mg-acetaminophen 1 tab PO Q6H PRN pain 04/21/25 04/21/25 History 325 mg tablet lisinopril 20 mg tablet 20 mg PO .q day 04/21/2503/11 History sertraline 25 mg tablet 25 mg PO .q day 04/21/2503/11 History Allergies Allergy/AdvReac Type Severity Reaction Status Date / Time aspirin Allergy Intermediate Bleeding Verified 04/22/25 11:25 ibuprofen AdvReac Intermediate Bleeding Verified 04/22/25 11:25 bee stings Allergy Anaphylaxis Uncoded 04/22/25 11:25 Visit Medications Acetaminophen (Acetaminophen 325 Mg Tablet) 650 mg PO Q6H PRN PRN Reason: Pain (1-3) & Fever >100.4 Stop: 05/21/25 11:26 Heparin Sodium (Porcine) (Heparin Sod Inj 5000 Unit/Ml Vial) 5,000 unit SC Q8HR CURRY Stop: 05/05/25 13:59 Last Admin: 04/21/25 13:54 Dose: 5,000 unit Propofol (Diprivan Ivpb) 1,000 mg in 100 mls @ 3.377 mls/hr IV .Q24H PRN; Protocol PRN Reason: PER PROTOCOL Stop: 05/21/25 09:29 Last Titration: 04/21/25 15:05 Dose: 35 mcg/kg/min, 23.642 mls/hr Potassium Chloride (Kcl Ivpb) 10 meq in 100 mls @ 100 mls/hr IV Q1H CURRY Stop: 04/21/25 16:44 Last Infusion: 04/21/25 15:05 Dose: Infused Fentanyl Citrate (Sublimaze Inj 2,500 Mcg/250 Ml Bag) 2,500 mcg in 250 mls @ 2.5 mls/hr IV .Q24H PRN; Protocol PRN Reason: PER PROTOCOL Stop: 04/26/25 12:59 Last Admin: 04/21/25 13:15 Dose: 25 mcg/hr, 2.5 mls/hr Pantoprazole Sodium (Pantoprazole Inj 40 Mg Vial) 40 mg IVP QDAY CURRY Stop: 05/21/25 11:29 Last Admin: 04/21/25 11:51 Dose: 40 mg Sennosides (Senna Tablet) 1 tab PO BID PRN; Protocol PRN Reason: CONSTIPATION Stop: 05/21/25 11:26 Discontinued Medications Albuterol/Ipratropium (Albuterol/Ipratropium (Duoneb) Rt Sheryl 3 Ml Nebu) 3 ml INH X1 ONE Stop: 04/21/25 08:36 Last Admin: 04/21/25 10:32 Dose: Not Given Enalaprilat (Enalaprilat Inj 1.25 Mg/Ml Vial) 1.25 mg IVP X1 ONE Stop: 04/21/25 12:07 Last Admin: 04/21/25 12:36 Dose: 1.25 mg Etomidate (Etomidate Inj 2 Mg/Ml Vial 10 Ml) 40 mg IVP X1 ONE Stop: 04/21/25 09:20 Last Admin: 04/21/25 09:22 Dose: 40 mg Furosemide (Furosemide Inj 10 Mg/Ml 4ml Vial) 80 mg IVP X1 ONE Stop: 04/21/25 10:20 Last Admin: 04/21/25 10:38 Dose: 80 mg Azithromycin 500 mg/ Sodium (Chloride) 250 mls @ 250 mls/hr IV X1 ONE Stop: 04/21/25 10:50 Last Infusion: 04/21/25 12:10 Dose: Infused Ceftriaxone Sodium/Dextrose (Rocephin/D5w 1gm Iv Premix) 1 gm in 50 mls @ 100 mls/hr IV X1 ONE Stop: 04/21/25 10:20 Last Infusion: 04/21/25 11:00 Dose: Infused Methylprednisolone Sodium Succinate (Methylprednisolone Sod Succ 62.5 Mg/Ml 2ml Vial) 125 mg IVP X1 ONE Stop: 04/21/25 08:36 Last Admin: 04/21/25 09:08 Dose: 125 mg Metoprolol Tartrate (Metoprolol Tartrate Inj 1 Mg/Ml Amp 5 Ml) 5 mg IVP X1 ONE Stop: 04/21/25 08:36 Last Admin: 04/21/25 09:05 Dose: 5 mg Morphine Sulfate (Morphine Sulf Inj 10 Mg/Ml Vial) 2 mg IVP X1 ONE Stop: 04/21/25 08:38 Last Admin: 04/21/25 09:11 Dose: 2 mg Potassium Chloride (Potassium Chloride 10% 20 Meq/15 Ml Udc) 40 meq GT X1 ONE Stop: 04/21/25 12:14 Last Admin: 04/21/25 12:37 Dose: 40 meq Rocuronium Vona (Rocuronium Inj 10 Mg/Ml Vial 10 Ml) 100 mg IV X1 ONE Stop: 04/21/25 09:30 Last Admin: 04/21/25 09:30 Dose: 100 mg Rocuronium Vona (Rocuronium Inj 10 Mg/Ml Vial 10 Ml) 100 mg IV X1 ONE Stop: 04/21/25 09:30 Last Admin: 04/21/25 09:33 Dose: Not Given Succinylcholine Chloride (Succinylcholine Inj 20 Mg/Ml Vial 10 Ml) 200 mg IV X1 ONE Stop: 04/21/25 09:20 Last Admin: 04/21/25 09:23 Dose: 200 mg Assessment & Plan Plan Summary Mr. Sarmiento is a 64-year-old male with past medical history of hypertension hyperlipidemia depression and chronic pain who presented to [facility] emergency department on 04/21/2025 with a chief complaint of worsening dyspnea He was intubated in the emergency department and placed on sedation and admitted to ICU for further care. Neuro Patient is sedated #Depression Likely has history of depression/anxiety, patient is on sertraline at home daily. - Will hold currently intubated and sedated Cardiac #Acute decompensated heart failure #Congestive heart failure new onset Patient has no history of heart failure, but on presentation patient has pitting edema in the lower extremity on physical exam by history progressive shortness of breath. Chest x-ray showed enlargement of cardiac contour with prominent vascular congestion. Elevated BNP of 375. Plan: - Lasix 80mg x 1 -> Lasix 40 mg daily - Strict intake and output - Daily fluid restriction 1500 cc - Daily weight - Ordered transthoracic echocardiogram - Cardiology consulted, appreciate recommendations #NSTEMI Type I vs. Type II #Elevated troponin Patient did complain of chest pressure, initial troponin in the ED was negative, repeat troponin 1.201. EKG in ED showed no acute ST?T changes. Unable to obtain more history about the symptoms as patient is sedated. Underlying risk factors of obesity, hyperlipidemia and hypertension Awilda score of 133 DAVID score of 2 Plan: -Plavix loading dose, patient is allergic to aspirin (confirmed with a friend and triage nurse) -Heparin drip -Troponins Q6 -Consult cardiology, appreciate recs #Hypertension urgency #HTN Blood pressure on arrival was 174/101 Patient received metoprolol in the ED, was given Vasotec x 1 - Blood pressure soft now, will monitor #Hyperlipidemia Patient has history of hyperlipidemia, will obtain lipid panel - Started on atorvastatin 80 mg at bedtime Pulmonary #Acute hypoxic and hypercapnic respiratory failure Differentials: Acute exacerbation of chronic obstructive airways disease, congestive heart failure, community acquired pneumonia, asthma with exacerbation, The patient was saturating in the 80s with 100% FiO2. PEEP was increased which raised the patient's saturation into the 90s pH6.96 on arrival PCO2 84 on arrival Patient likely has component of underlying obesity hypoventilation syndrome Plan: -Continue mechanical ventilation ACMV -Will continue with IV diuresis and monitor respiratory status GI NPO Bowel regimen senna PRN GI prophylaxis Protonix IV Renal #Lactic acidosis Lactic acid of 3.1, likely in setting of acute hypoxic respiratory failure Infectious Disease #Asymptomatic bacteriuria Rare bacteria noted in urine analysis Patient asymptomatic on presentation. Endocrine -No pertinent issue. Heme -No pertinent issue. MSK -No pertinent issue. Skin -No pertinent issue. Urogenital -No pertinent issue. Lines/Access:Peripheral IV Nutrition: NPO Sedation/Analgesia: Propofol & Fentanyl DVT Prophylaxis: heparin drip GI Prophylaxis Protonix IV Code Status: Full Code Disposition: ICU in setting of AHRF Case discussed with Attending Dr. Levine, Dr Guevara PGY3 [address] Dr[address] Mckeon PGY2. Juan Case PGY1 Disclaimer: This note was dictated by speech recognition. Minor errors in eligibility and occupancy interviewer may be present due to voice recognition software. Attending Provider Attestation/Addendum Patient seen and examined with above resident, Juan Case DO. I agree with the findings, assessment, and plan of care as documented except for any differences below. Patient admitted with acute hypoxic respiratory failure. Intubated due to respiratory distress and severe respiratory acidosis. Patient also with elevated lactate likely in the setting of his increased work of breathing. No evidence of hypoperfusion at this point. Patient significantly hypoxic requiring high PEEP for optimal recruitment. He remains on lung protective settings with appropriate tidal volume and plateau pressure maintained below 30 despite our aggressive recruitment. Patient given Lasix in the ED with brisk urine output, will repeat serial labs and dosing throughout the night to ensure that we continue to optimize his pulmonary edema as visualized on chest film as well as based on compliance on mechanical ventilation with volume control. Patient remains on appropriate sedation with propofol and fentanyl to keep him comfortable while we await improvement. Will need cardiology input given rising troponin, appreciate input on need for statin and aspirin as well as starting heparin for NSTEMI as a potential precipitant. Will have to wait for formal echo read to determine presence of regional wall motion abnormalities. More concerning, patient with significant hypertension and potential acceleration that led to hypertensive emergency in the setting of development of sudden pulmonary edema based on presentation per ER signout. Patient on mechanical patient does not show any significant signs of airway obstruction making COPD/exacerbation less likely in both his father and friend at the bedside denied any significant history of this. He did try some bronchodilators that his friend routinely uses for his COPD without any significant benefit noted. Will plan for spontaneous awake trial tomorrow to determine if the patient is ready for weaning. Will decrease PEEP gradually throughout the day but not to go below 12 to ensure that we maintain recruitment of alveoli for efficient gas exchange. Total critical care time: Personally spent 50 minutes for review of physiologic parameters, directing plan of care, coordination of care, and counseling patient's father/friend at bedside. This is exclusive of time spent teaching on staff or performing any separate billable procedures. Patient remains at significant risk for further morbidity and mortality warranting close monitoring care only available in the ICU. Patient required critical care services for acute decompensated heart failure, acute hypoxic and hypercapnic respiratory failure, non-ST elevation myocardial infarction, accelerated hypertension with hypertensive emergency/pulmonary edema.
[2025-04-21 16:34] LABS: Base Excess -4 (-3-3); HCO3 23 mEq/L (20-26); Inspired Oxygen, FIO2 60 %; O2 Saturation 100 % (91-98); PCO2 48 mmHg (32.0-48.0); PO2 222 mmHg (83-108); pH, Arterial 7.29 (7.35-7.45)
[2025-04-21 16:36] LABS: Allen Test Performed/OK; Puncture Site Right Radial
[2025-04-21] MEDS: PROPOFOL 1,000 MG IVPB 1,000 MG/100 ML VIAL 20.265 MG IV ×2 (17:14→21:39)
[2025-04-21 18:19] LABS: Troponin I 1.201 ng/mL (0.0-0.045)
[2025-04-21 18:58] LABS: Base Excess -3 (-3-3); HCO3 22 mEq/L (20-26); Inspired Oxygen, FIO2 35 %; O2 Saturation 101 % (91-98); PCO2 41 mmHg (32.0-48.0); PO2 205 mmHg (83-108); pH, Arterial 7.35 (7.35-7.45)
[2025-04-21 19:00] LABS: Allen Test Performed/OK; Puncture Site Right Radial
[2025-04-21 19:52] LABS: INR 1.1 (0.9-1.3); Partial Thromboplastin Time 26.8 Seconds (22.0-36.0); Prothrombin Time 11.7 Seconds (9.0-12.2)
[2025-04-21] MEDS: HEPARIN SOD INJ 5000 UNIT/ML VIAL 4000 UNIT IV (20:55)
[2025-04-21] MEDS: Heparin/D5w 25K 250 ML Ivpb 25,000 UNIT/250 ML BAG 9.968 UNIT IV (20:56)
[2025-04-21] MEDS: ATORVASTATIN CALCIUM 20 MG TABLET 80 MG NG (21:44)
[2025-04-21] MEDS: CLOPIDOGREL BISULFATE 75 MG TABLET 300 MG PO (21:45)
[2025-04-21 21:53] LABS: Base Excess -2 (-3-3); HCO3 24 mEq/L (20-26); O2 Saturation 98 % (91-98); PCO2 46 mmHg (32.0-48.0); PO2 93 mmHg (83-108); pH, Arterial 7.33 (7.35-7.45)
[2025-04-21 22:06] LABS: Allen Test Performed/OK; Inspired Oxygen, FIO2 40 %; Puncture Site Right Radial
[2025-04-22] VITALS (38 sets, daily range): BP systolic 77–173; BP diastolic 48–94; PULSE 48–90; RESP 7–95; TEMP 36.2–36.9; O2SAT 90–98; BMI 39.6
[2025-04-22] LABS: Troponin I 1.594 ng/mL (0.0-0.045)
[2025-04-22 03:07] LABS: Basophils # (Auto) 0.0 Thou/mm3 (0.0-0.2); Basophils % (Auto) 0 % (0-2.5); Eosinophils # (Auto) 0.0 Thou/mm3 (0.0-0.5); Eosinophils % (Auto) 0 % (0-10); Hematocrit 43.6 % (41.0-53.0); Hemoglobin 14.8 g/dL (13.5-16.0); Immature Granulocytes Auto 0.04 Thou/mm3 (0.00-0.00); Lymphocytes # (Auto) 0.9 Thou/mm3 (1.0-4.8); Lymphocytes % (Auto) 7 % (10-50); Mean Corpuscular HGB Conc 33.9 g/dl (31.0-37.0); Mean Corpuscular Hemoglobin 30.3 pg (25.0-35.0); Mean Corpuscular Volume 89 fL (80-100); Monocytes # (Auto) 0.5 Thou/mm3 (0.0-0.8); Monocytes % (Auto) 4 % (0-12); Neutrophils # (Auto) 12.3 Thou/mm3 (1.8-7.7); Neutrophils % (Auto) 89 % (37-80); Nucleated Red Blood Cell # 0.00 Thou/mm3 (0.00-0.00); Nucleated Red Blood Cell % 0 /100 WBC (0); Platelet Count 193 Thou/mm3 (140-440); RDW Standard Deviation 40.5 fL (35.1-43.9); Red Blood Count 4.89 Miln/mm3 (4.50-5.90); White Blood Count 13.9 Thou/mm3 (3.8-10.6)
[2025-04-22] MEDS: PROPOFOL 1,000 MG IVPB 1,000 MG/100 ML VIAL 20.265 MG IV (03:27)
[2025-04-22 03:32] LABS: Partial Thromboplastin Time 41.7 Seconds (22.0-36.0)
[2025-04-22 03:36] LABS: Alanine Aminotransferase 12 U/L (10-49); Albumin, Serum 3.8 gm/dL (3.4-4.8); Albumin/Globulin Ratio 1.3 (1.2-2.2); Alkaline Phosphatase 74 U/L (46-116); Anion Gap 10 (7-16); Aspartate Amino Transferase 26 U/L (0-34); BUN/Creatinine Ratio 17 Ratio (12-20); Bilirubin,Total 0.9 mg/dL (0.3-1.2); Blood Urea Nitrogen 24 mg/dL (9-23); Calcium 8.6 mg/dL (8.3-10.6); Calcium (Corrected) 8.8 mg/dL (8.5-10.1); Carbon Dioxide 23.8 mMol/L (20.0-31.0); Cardiac Risk Estimate 3.2 RATIO (4.0-6.7); Chloride 105 mMol/L (98-107); Cholesterol 159 mg/dL (132-200); Creatinine (Component) 1.4 mg/dL (0.6-1.3); Estimated Creatinine Clearance 71.6 mL/min (>60); Globulin 2.9 gm/dL (2.3-3.5); Glucose 160 mg/dL (74-106); HDL Cholesterol 50 mg/dL (40-60); LDL Cholesterol,Calculated 92 mg/dL (0-130); Magnesium 1.9 mg/dL (1.6-2.6); Osmolality,Calculated 284 (275-295); Phosphorous 2.2 mg/dL (2.4-5.1); Potassium 5.5 mMol/L (3.4-5.1); Sodium 139 mMol/L (136-145); Total Protein 6.7 gm/dL (5.7-8.2); Triglycerides 83 mg/dL (30-150); eGFR 56 See Note
[2025-04-22] MEDS: DEXTROSE 50%-WATER INJ 50 ML SYRINGE IV (03:58)
[2025-04-22] MEDS: INSULIN HUM REGULAR 1 UNIT/0.01 ML (PER UNIT) 5 UNIT IV (03:59)
[2025-04-22] MEDS: SOD POLYSTYRENE SULFON SUSP 15 GM/60 ML BTL 30 GM NG (04:00)
[2025-04-22] MEDS: HEPARIN SOD INJ 5000 UNIT/ML VIAL 2000 UNIT IV (04:32)
[2025-04-22] MEDS: Heparin/D5w 25K 250 ML Ivpb 25,000 UNIT/250 ML BAG 12.524 UNIT IV (04:32)
[2025-04-22 05:22] LABS: Base Excess -2 (-3-3); HCO3 24 mEq/L (20-26); Inspired Oxygen, FIO2 40 %; O2 Saturation 100 % (91-98); PCO2 43 mmHg (32.0-48.0); PO2 135 mmHg (83-108); pH, Arterial 7.35 (7.35-7.45)
[2025-04-22 05:24] LABS: Allen Test Performed/OK; Puncture Site Right Radial
--- NOTE | 2025-04-22 07:02 | XR_ITS ---
Examination: AP chest single view Technique one AP portable semiupright chest single view Date and time: April 22, 2025, 0809 hrs. Comparison April 21, 2025 Indications: Shortness of breath, acute hypoxic respiratory failure Findings: Improvement, currently mild CHF with enlarged cardiac contour, prominent vascular congestion and mild perihilar edema Tracheal tube tip 4.5 cm above june Orogastric tube in the stomach Impression: Mild heart failure
[2025-04-22 07:10] LABS: Lactate (Lactic Acid) 2.6 mMol/L (0.4-2.0)
[2025-04-22 07:43] LABS: Albumin, Serum 3.7 gm/dL (3.4-4.8); Anion Gap 10 (7-16); BUN/Creatinine Ratio 18 Ratio (12-20); Blood Urea Nitrogen 21 mg/dL (9-23); Calcium 8.7 mg/dL (8.3-10.6); Calcium (Corrected) 8.9 mg/dL (8.5-10.1); Carbon Dioxide 21.1 mMol/L (20.0-31.0); Chloride 108 mMol/L (98-107); Creatinine (Component) 1.2 mg/dL (0.6-1.3); Estimated Creatinine Clearance 82.7 mL/min (>60); Glucose 161 mg/dL (74-106); Osmolality,Calculated 283 (275-295); Phosphorous 2.5 mg/dL (2.4-5.1); Potassium 4.9 mMol/L (3.4-5.1); Sodium 139 mMol/L (136-145); eGFR > 60 See Note
[2025-04-22 08:07] LABS: Troponin I 0.727 ng/mL (0.0-0.045)
[2025-04-22 08:54] LABS: Base Excess -1 (-3-3); HCO3 24 mEq/L (20-26); Inspired Oxygen, FIO2 21 %; O2 Saturation 97 % (91-98); PCO2 40 mmHg (32.0-48.0); PO2 79 mmHg (83-108); pH, Arterial 7.39 (7.35-7.45)
[2025-04-22 08:55] LABS: Allen Test Performed/OK; Puncture Site Right Radial
[2025-04-22] MEDS: PROPOFOL 1,000 MG IVPB 1,000 MG/100 ML VIAL 16.887 MG IV (09:06)
[2025-04-22] MEDS: FUROSEMIDE INJ 10 MG/ML 4ML VIAL 40 MG IVP (09:07)
[2025-04-22 10:09] LABS: Reflex Lactate? Y
[2025-04-22 10:26] LABS: Lactic Acid, 3 HR 3.0 mMol/L (0.4-2.0)
[2025-04-22 10:48] LABS: Partial Thromboplastin Time 44.1 Seconds (22.0-36.0)
--- NOTE | 2025-04-22 10:54 | PD.RESPRO ---
Documentation for date of: 04/22/25 Subjective Subjective Interval history: History of Present Illness Chief complaint: Shortness of breath History of present illness: HPI: Mr. Sarmiento is a 64-year-old male with past medical history of hypertension hyperlipidemia depression and chronic pain who presented to [facility] emergency department on 04/21/2025 with a chief complaint of worsening dyspnea. Patient on examination in ED is on mechanical ventilation, most of the history obtained from friend at bedside. Per patient's friend patient has been experiencing worsening shortness of breath since the last week, patient has progressive shortness of breath became severe to the point that he decided to come to the emergency department, he also complained of increased leg swelling. Per chart review patient also complained of several days of chest pressure, was alert and oriented x 3 in the ED patient's ABG showed pH 6.96, pCO2 84 considering patient's underlying respiratory failure intubated by ED physician and ICU was consulted for admission. ED Course: The patient was intubated in the emergency department using etomidate succinylcholine and rocuronium and placed on a propofol drip. He was treated with DuoNeb Solu-Medrol, Rocephin, Zithromax, metoprolol, morphine, and Lasix. EKG demonstrated a normal sinus rhythm with no acute ST changes. -Initial Vitals: Vitals upon arrival were temp 97.8, pulse 113, blood pressure 174/101, pulse ox 88% on room air. -Labs Significant for: Blood tests and urine tests remarkable for lactic acid 3.1, BNP 375. ABG showed pH 6.96, pCO2 84, and pHCO3 19. COVID/influenza negative. -Imaging: Chest x-ray significant for, moderate CHF, mild to moderate enlargement cardiac contour with prominent vascular congestion and perihilar edema -Patient admitted to ICU for respiratory failure. Patient was intubated in the emergency department and placed on propofol and fentanyl drip and transfered to ICU for further care. 04/22/2025 Sedation was weaned and patient was extubated to oxygen mask on 3 L and eventually to room air based on improving ABG and hemodynamic parameters. Upon speaking with the patient he endorsed chest pressure the day prior to admission. Has no established history of heart disease. He was referred to a [facility] consultant by his PCP but did not follow-up because of insurance issues. He mentioned that he had a stroke in 2009 and was diagnosed with hypertension at the time. He was not started on any blood thinners at the time and denied neurological or sensory deficit from the stroke. He did not visit the hospital after the stroke. He takes a blue pill at home (likely lisinopril). The patient never smoked but endorsed secondhand smoke exposure around the age of 18 from his parents. The patient's troponins are trending downward. Creatinine increased from 1 to 1.4. Will continue to monitor and titrate dose of Lasix accordingly. Will repeat BMP in the evening. The patient's blood pressure this morning was 163/82. He was started on nifedipine. Patient was seen in a sleep clinic at an unspecified time and was diagnosed with sleep apnea requiring a CPAP machine. Will initiate CPAP this evening. Exam Vital Signs Temp Pulse Resp BP Pulse Ox O2 Del Method O2 Flow Rate 97.1 F 58 L 7 L 118/64 98 Cool Mist 6 04/22/25 08:00 04/22/25 10:00 04/22/25 10:00 04/22/25 10:00 04/22/25 10:00 04/22/25 10:35 04/22/25 10:35 FiO2 28 04/22/25 10:35 Narrative Exam General: Awake and in no acute distress. Conversational and non-toxic appearing. Neurologic: GCS 15. Alert and oriented x3, no gross neurological deficit, and patient able to move all 4 extremities. HEENT: Normocephalic, atraumatic, mucous membranes moist. Pupils reactive to light. Heart: Hypertensive. Bradycardic in the 50s, normal rhythm, normal S1 and S2, no murmurs. Lungs: Clear to auscultation bilaterally with no wheezing or crackles. Abdomen: Obese soft, nontender, positive bowel sounds. No guarding or rebound tenderness. Extremities: 1+ pitting edema in the lower extremities bilaterally. 2+ radial and dorsalis pedis pulses bilaterally. Skin: Warm. Dry. Venous stasis rash right lower extremity anterior. Objective Labs 04/22/25 02:53 04/22/25 07:00 Labs: Laboratory Results - last 24 hr 04/21/25 04/21/25 04/21/25 08:45 12:36 13:01 WBC RBC Hgb Hct MCV MCH MCHC RDW Std Deviation Plt Count Neut % (Auto) Lymph % (Auto) Sanders % (Auto) Eos % (Auto) Baso % (Auto) Neut # (Auto) Lymph # (Auto) Sanders # (Auto) Eos # (Auto) Baso # (Auto) Immature Gran # (Auto) Absolute Nucleated RBC Immature Gran % Nucleated RBC % PT INR APTT Puncture Site Right Radial ABG pH 7.15 L* D ABG pCO2 66 H D ABG pO2 80 L D ABG HCO3 23 ABG O2 Saturation 93 ABG Base Excess -7 L FiO2 60 Sodium Potassium Chloride Carbon Dioxide Anion Gap BUN Creatinine Estim Creat Clear Calc eGFR BUN/Creatinine Ratio Glucose Estimated Ave Glu mg/dL 114 Hemoglobin A1c 5.6 Calculated Osmolality Lactic Acid 3.1 H Calcium Corrected Calcium Phosphorus Magnesium Total Bilirubin AST ALT Alkaline Phosphatase Troponin I Total Protein Albumin Globulin Albumin/Globulin Ratio Triglycerides Cholesterol LDL Cholesterol, Calc HDL Cholesterol Cholesterol/HDL Ratio 04/21/25 04/21/25 04/21/25 16:28 17:34 18:40 WBC RBC Hgb Hct MCV MCH MCHC RDW Std Deviation Plt Count Neut % (Auto) Lymph % (Auto) Sanders % (Auto) Eos % (Auto) Baso % (Auto) Neut # (Auto) Lymph # (Auto) Sanders # (Auto) Eos # (Auto) Baso # (Auto) Immature Gran # (Auto) Absolute Nucleated RBC Immature Gran % Nucleated RBC % PT INR APTT Puncture Site Right Radial Right Radial ABG pH 7.29 L D 7.35 ABG pCO2 48 D 41 ABG pO2 222 H D 205 H ABG HCO3 23 22 ABG O2 Saturation 100 H 101 H ABG Base Excess -4 L -3 FiO2 60 35 Sodium Potassium Chloride Carbon Dioxide Anion Gap BUN Creatinine Estim Creat Clear Calc eGFR BUN/Creatinine Ratio Glucose Estimated Ave Glu mg/dL Hemoglobin A1c Calculated Osmolality Lactic Acid Calcium Corrected Calcium Phosphorus Magnesium Total Bilirubin AST ALT Alkaline Phosphatase Troponin I 1.201 H* D Total Protein Albumin Globulin Albumin/Globulin Ratio Triglycerides Cholesterol LDL Cholesterol, Calc HDL Cholesterol Cholesterol/HDL Ratio 04/21/25 04/21/25 04/21/25 19:21 21:40 23:12 WBC RBC Hgb Hct MCV MCH MCHC RDW Std Deviation Plt Count Neut % (Auto) Lymph % (Auto) Sanders % (Auto) Eos % (Auto) Baso % (Auto) Neut # (Auto) Lymph # (Auto) Sanders # (Auto) Eos # (Auto) Baso # (Auto) Immature Gran # (Auto) Absolute Nucleated RBC Immature Gran % Nucleated RBC % PT 11.7 INR 1.1 APTT 26.8 Puncture Site Right Radial ABG pH 7.33 L ABG pCO2 46 ABG pO2 93 D ABG HCO3 24 ABG O2 Saturation 98 ABG Base Excess -2 FiO2 40 Sodium Potassium Chloride Carbon Dioxide Anion Gap BUN Creatinine Estim Creat Clear Calc eGFR BUN/Creatinine Ratio Glucose Estimated Ave Glu mg/dL Hemoglobin A1c Calculated Osmolality Lactic Acid Calcium Corrected Calcium Phosphorus Magnesium Total Bilirubin AST ALT Alkaline Phosphatase Troponin I 1.594 H* D Total Protein Albumin Globulin Albumin/Globulin Ratio Triglycerides Cholesterol LDL Cholesterol, Calc HDL Cholesterol Cholesterol/HDL Ratio 04/22/25 04/22/25 04/22/25 02:53 05:08 07:00 WBC 13.9 H RBC 4.89 Hgb 14.8 Hct 43.6 MCV 89 MCH 30.3 MCHC 33.9 RDW Std Deviation 40.5 Plt Count 193 D Neut % (Auto) 89 H Lymph % (Auto) 7 L Sanders % (Auto) 4 Eos % (Auto) 0 Baso % (Auto) 0 Neut # (Auto) 12.3 H Lymph # (Auto) 0.9 L Sanders # (Auto) 0.5 Eos # (Auto) 0.0 Baso # (Auto) 0.0 Immature Gran # (Auto) 0.04 H Absolute Nucleated RBC 0.00 Immature Gran % 0 Nucleated RBC % 0 PT INR APTT 41.7 H D Puncture Site Right Radial ABG pH 7.35 ABG pCO2 43 ABG pO2 135 H D ABG HCO3 24 ABG O2 Saturation 100 H ABG Base Excess -2 FiO2 40 Sodium 139 139 Potassium 5.5 H D 4.9 D Chloride 105 108 H Carbon Dioxide 23.8 21.1 Anion Gap 10 10 BUN 24 H 21 Creatinine 1.4 H 1.2 Estim Creat Clear Calc 71.6 82.7 eGFR 56 L > 60 BUN/Creatinine Ratio 17 18 Glucose [address] Glu mg/dL Hemoglobin A1c Calculated Osmolality 284 283 Lactic Acid 2.6 H Calcium 8.6 8.7 Corrected Calcium 8.8 8.9 Phosphorus 2.2 L 2.5 Magnesium 1.9 Total Bilirubin 0.9 AST 26 ALT 12 Alkaline Phosphatase 74 D Troponin I 0.727 H* D Total Protein 6.7 Albumin 3.8 D 3.7 Globulin 2.9 Albumin/Globulin Ratio 1.3 Triglycerides 83 Cholesterol 159 LDL Cholesterol, Calc 92 HDL Cholesterol 50 Cholesterol/HDL Ratio 3.2 L 04/22/25 04/22/25 08:42 10:15 WBC RBC Hgb Hct MCV MCH MCHC RDW Std Deviation Plt Count Neut % (Auto) Lymph % (Auto) Sanders % (Auto) Eos % (Auto) Baso % (Auto) Neut # (Auto) Lymph # (Auto) Sanders # (Auto) Eos # (Auto) Baso # (Auto) Immature Gran # (Auto) Absolute Nucleated RBC Immature Gran % Nucleated RBC % PT INR APTT 44.1 H Puncture Site Right Radial ABG pH 7.39 ABG pCO2 40 ABG pO2 79 L D ABG HCO3 24 ABG O2 Saturation 97 ABG Base Excess -1 FiO2 21 Sodium Potassium Chloride Carbon Dioxide Anion Gap BUN Creatinine Estim Creat Clear Calc eGFR BUN/Creatinine Ratio Glucose Estimated Ave Glu mg/dL Hemoglobin A1c Calculated Osmolality Lactic Acid 3.0 H Calcium Corrected Calcium Phosphorus Magnesium Total Bilirubin AST ALT Alkaline Phosphatase Troponin I Total Protein Albumin Globulin Albumin/Globulin Ratio Triglycerides Cholesterol LDL Cholesterol, Calc HDL Cholesterol Cholesterol/HDL Ratio ABG Interpretation ABG results: 04/21/25 04/21/25 04/21/25 09:53 12:36 16:28 ABG pH 6.96 L* 7.15 L* D 7.29 L D ABG pCO2 84 H* 66 H D 48 D ABG pO2 56 L* 80 L D 222 H D ABG HCO3 19 L 23 23 ABG O2 Saturation 75 L 93 100 H ABG Base Excess -15 L -7 L -4 L 04/21/25 04/21/25 04/22/25 18:40 21:40 05:08 ABG pH 7.35 7.33 L 7.35 ABG pCO2 41 46 43 ABG pO2 205 H 93 D 135 H D ABG HCO3 22 24 24 ABG O2 Saturation 101 H 98 100 H ABG Base Excess -3 -2 -2 04/22/25 08:42 ABG pH 7.39 ABG pCO2 40 ABG pO2 79 L D ABG HCO3 24 ABG O2 Saturation 97 ABG Base Excess -1 Quality Measures Quality Measures none Assessment & Plan Assessment Current Active Medications: Generic Name Dose Route Start Last Admin Trade Name Freq PRN Reason Stop Dose Admin Acetaminophen 650 mg 04/21/25 11:27 Acetaminophen 325 Mg Tablet PO 05/21/25 11:26 Q6H PRN Pain (1-3) & Fever >100.4 Atorvastatin Calcium 80 mg 04/21/25 21:00 04/21/25 21:44 Atorvastatin Calcium 20 Mg Tablet NG 05/21/25 20:59 80 mg HS CURRY Administration Dextrose 50 ml 04/22/25 03:47 Dextrose 50%-Water Inj 50 Ml Syringe IV 05/22/25 03:46 Q15MIN PRN BG <50 OR BG <70 & pt unresponsive Furosemide 40 mg 04/22/25 09:00 04/22/25 09:07 Furosemide Inj 10 Mg/Ml 4ml Vial IVP 05/22/25 08:59 40 mg QDAY CURRY Administration Heparin Sodium/Dextrose 25,000 unit in 250 mls @ 9.968 mls/hr 04/21/25 18:45 04/22/25 04:32 Heparin In D5w Ivpb IV 05/05/25 18:44 9.8 units/kg/hr .Q24H CURRY 12.524 mls/hr Administration Protocol 7.8 UNITS/KG/HR Pantoprazole Sodium 40 mg 04/21/25 11:30 04/22/25 09:07 Pantoprazole Inj 40 Mg Vial IVP 05/21/25 11:29 40 mg QDAY CURRY Administration Sennosides 1 tab 04/21/25 11:27 Senna Tablet PO 05/21/25 11:26 BID PRN CONSTIPATION Protocol Plan Summary Mr. Sarmiento is a 64-year-old male with past medical history of hypertension hyperlipidemia depression and chronic pain who presented to [facility] emergency department on 04/21/2025 with a chief complaint of worsening dyspnea He was intubated in the emergency department and placed on sedation and admitted to ICU for further care. Neuro #Depression Likely has history of depression/anxiety, patient is on sertraline at home daily. Plan: - Resume home sertraline #Questionable stroke Patient has no neurological deficits nor has he ever been admitted to a hospital Plan: - Follow-up outpatient neurology Cardiac #Acute decompensated heart failure #Congestive heart failure new onset Patient has no history of heart failure, but on presentation patient has pitting edema in the lower extremity on physical exam by history progressive shortness of breath. Chest x-ray showed enlargement of cardiac contour with prominent vascular congestion. Elevated BNP of 375. Plan: - Lasix 40 mg daily pending continued improvement in serum creatinine - Strict intake and output - Daily fluid restriction 1500 cc - Pending transthoracic echocardiogram read - Cardiology consulted, appreciate recommendations #NSTEMI Type I vs. Type II #Elevated troponin Patient did complain of chest pressure, initial troponin in the ED was negative, repeat troponin 1.201. EKG in ED showed no acute ST?T changes. Underlying risk factors of obesity, hyperlipidemia and hypertension Awilda score of 133 DAVID score of 2 Troponin overnight was 1.5, improved to 0.7 morning of 04/22/2025 Plan: -Plavix loading dose, patient is allergic to aspirin (confirmed with patient) -Heparin drip -Troponins Q8 -Consult cardiology, appreciate recs #Hypertensive Emergency Blood pressure on arrival was 174/101, fluctuating to 200+/130 with resulting flash pulmonary edema Patient received metoprolol in the ED, was given Vasotec x 1 Continues to be hypertensive after extubation, 163/83 Plan: - Nifedipine 10 mg p.o. 3 times daily #Hyperlipidemia Patient has history of controlled hyperlipidemia - Continue home atorvastatin 20 mg Pulmonary #Acute hypoxic and hypercapnic respiratory failure # Flash pulmonary edema ABG morning of 04/22/2025 has pH 7.39, PCO2 40, PO2 79, HCO3 24, saturation 97 pre-extubation. Patient was following commands after weaning sedation the morning of 04/22/2025 X-ray the morning of 04/22/2025 showed decreased infiltrates Plan: -Extubated to room air -Lasix 40 mg daily - BiPAP/CPAP at bedtime GI Plan: -Bowel regimen senna PRN -GI prophylaxis Protonix IV Renal #Lactic acidosis Lactic acid of 3.0, likely in setting of acute hypoxic respiratory failure Plan: - Monitor fluid status - Continue to trend lactic acid #DINORA Differential: Likely due to side effect of enalaprilat and Lasix Creatinine increased from 1.0 to 1.4, has downtrended to 1.2 Plan: - Follow volume status - Strict ins and outs - Titrate Lasix dose - Daily CMP - Avoid nephrotoxic medications #Hyperkalemia Potassium 5.5 overnight, has downtrended to 4.9 after administration of insulin and dextrose Plan: - Trend K #Hypomagnesemia Magnesium 1.9 over night. Goal magnesium level above 2. Plan: - 2 g magnesium given Infectious Disease #Asymptomatic bacteriuria Rare bacteria noted in urine analysis Patient asymptomatic on presentation. Endocrine -No pertinent issue. - TSH 1.7 - A1c 5.4 Heme -No pertinent issue. MSK -No pertinent issue. Skin -No pertinent issue. Urogenital -No pertinent issue. Lines/Access:Peripheral IV Nutrition: Cardiac diet Sedation/Analgesia: None l DVT Prophylaxis: heparin drip, GI Prophylaxis Protonix IV Code Status: Full Code Disposition: ICU in setting of AHRF. Anticipate downgrade to telemetry within 24 hours. Case discussed with Attending Dr. Levine, Dr Guevara PGY3. Juan Case PGY1 Attending Provider Attestation/Addendum Patient seen and examined with the above resident, Juan Case, . I agree with the findings, assessment, and plan of care as documented except for any differences below. Patient with excellent diuresis and afterload reduction. Rise in Cr expected with DINORA from hypertension likely. Patient with sleep apnea going untreated and likely component of CAD, prior CVA history reportedly as well. New onset heart failure. Echo pending now. NSTEMI being treated with plan for coronary cath in coming days. Patient now stable and successfully extubated to DC. Nocturnal Bipap may be helpful if tolerated. Will add on beta shanti and ACEI with renal recovery. Monitor UOP with extubation as brisk diuresis expected with removal of PPV. Lasix as needed to maintain net negative. Monitor electrolytes this afternoon as well. If stable on heparin, can downgrade tomorrow to complete workup with cardiology. Needs to get CPAP/ Bipap as outpatient. Total critical care time: I personally spent 40 minutes fore review of physiologic parameters, directing plna of care, coordination of care with other subspecialists, and counseling patient at bedside. This is exclusive of time spent teaching housestaff or performing any separate billable procedures. Critical care services requifred for acute hypoxic respiratory failure, acute renal failure, acute heart failure, systolic, NSTEMI. Patient remains at significant risk of further morbidity and mortality warranting clos emonitoring and care only available in the ICU.
[2025-04-22] MEDS: Magnesium Sulfate 2 GM Ivpb 2 GM/50 ML BAG IV (13:05)
[2025-04-22] MEDS: HEPARIN SOD INJ 5000 UNIT/ML VIAL 2000 UNIT IVP ×2 (13:05→19:07)
--- NOTE | 2025-04-22 15:46 | ESCONSULT_ITS ---
<Statement entered by Margaret Ibrahim MD - 04/22/25 19:29> I personally examined the patient with the medical history patient is a 64-year-old male with a history of hypertension for many years previous stroke apparently small stroke recovered claims to be allergic to aspirin but most of the allergies because of nosebleed but no real allergy to aspirin alone and lisinopril did not take the medicine couple of days came to the hospital severe hypertension hypertensive heart disease heart failure acute flash pulmonary edema with acute hypoxic respiratory failure. Patient successfully extubated after aggressive IV diuresis more than 3 L negative clinically much better patient did have some chest tightness but denies any pain Troponin went up to 1.0 delta Trope significant came down again EKG unremarkable. Patient does have preserved ejection fraction on echo patient clearly had acute pulmonary edema with no good explanation most likely CAD acute NSTEMI recommended to continue heparin till tomorrow aspirin Plavix will be continued schedule the patient for angiogram risk benefits alternatives explained patient does not like taking any chest without contrast but recommended that this is a lifesaving procedure he agreed to proceed with that he does not have any significant allergy such as contrast allergy hence not concerned about the risk but we will give steroids and Benadryl if necessary. Evaluated the patient with the resident physician Dr. Joseph De León agree with the treatment plan recommendations. HPI Data of Consult Requesting Physician: Mark Levine MD Admitting Provider: Mark Levine MD Attending Provider: Mark Levine MD Primary Care Provider: CAROL Serrano Consult Narrative History of present illness: Mr. Licea is a 64-year-old male with past medical history significant for uncontrolled hypertension, hyperlipidemia, depression, chronic back pain and history of stroke in 2009 without any residual deficits presented to the ED due to worsening shortness of breath. In the ED patient had become altered and ABG showed pH of 6.96, pCO2 84 and patient was intubated and admitted to the ICU. Patient was extubated on 04/22/2025, patient is alert and oriented. Patient states he has had worsening dyspnea on exertion for the past 6 months which has now progressed to dyspnea at rest. Patient denies any orthopnea however he states he sleeps with couple pillows due to comfort but denies any shortness of breath while laying flat. Patient denies PND and denies using a CPAP machine. Patient states he has noticed that he is now unable to walk even 2 blocks without getting short of breath. Patient noticed that his symptoms have subtly progressed for the past 1 year but in the last 6 months he has had worsening shortness of breath. Patient denies any prior knowledge of any cardiac history however he does have a history of a stroke in 2009 for which his primary care had sent him to a [facility] which he never followed up with. Patient states he also has noticed from time to time in the last 6 months he gets lower extremity edema which eventually resolves when he rests. Patient denies any dizziness or syncopal episodes. Patient denies any chest pain, palpitations or chest pressure and also denies any prior history of similar episodes. Cardiology is consulted for new onset of acute decompensated congestive heart failure. PMH: Hypertension, hyperlipidemia, depression, chronic back pain and history of stroke in 2009 without any residual deficits PSH: Appendectomy, bilateral knee replacement surgeries, tonsillectomy SH: Denies smoking tobacco, occasionally uses marijuana, drinks alcohol daily (states he used to be a heavy drinker years ago but now drinks approximately 2 beers daily) denies use of any illicit drugs including cocaine or methamphetamines Home Meds: Lisinopril, atorvastatin, [place] and sertraline Allergies: Patient claims when he was a child aspirin made him get a nosebleed cc:: cc: Mark Levine MD Review of Systems Review of Systems Systems Reviewed: All systems reviewed, normal except as documented Exam Vital Signs Temp Pulse Resp BP Pulse Ox O2 Del Method O2 Flow Rate 97.1 F 84 15 161/83 H 90 L Room Air 6 04/22/25 08:00 04/22/25 13:53 04/22/25 13:53 04/22/25 13:04 04/22/25 13:00 04/22/25 12:00 04/22/25 10:35 FiO2 28 04/22/25 10:35 Narrative Exam GENERAL: A&Ox3, Obese male, cooperative, Not in acute distress NEURO: no focal neurological deficits noted HEENT: Atraumatic, Normocephalic. mucous membranes moist. Eyes open, symmetrical, & clear HEART: Normal Heart Sounds LUNGS: Clear to auscultation with no wheezing or crackles. ABDOMEN: soft, non-distended, non-tender, bowel sounds heard, no guarding or rebound tenderness SKIN: No Rash or ecchymoses EXTREMITIES: No edema, tenderness, able to move all 4 extremities, pedal pulses palpated Results Labs 04/22/25 02:53 04/22/25 07:00 Labs: Short CBC 04/22/25 Range/Units 02:53 WBC 13.9 H (3.8-10.6) Thou/mm3 Hgb 14.8 (13.5-16.0) g/dL Hct 43.6 (41.0-53.0) % Plt Count 193 D (140-440) Thou/mm3 BMP 04/22/25 04/22/25 02:53 07:00 Sodium 139 139 Potassium 5.5 H D 4.9 D Chloride 105 108 H Carbon Dioxide 23.8 21.1 BUN 24 H 21 Creatinine 1.4 H 1.2 Glucose 160 H 161 H Calcium 8.6 8.7 Cardiac Enzymes 04/21/25 04/21/25 04/22/25 Range/Units 17:34 23:12 07:00 Troponin I 1.201 H* D 1.594 H* D 0.727 H* D (0.0-0.045) ng/mL Liver Function 04/22/25 04/22/25 Range/Units 02:53 07:00 Total Bilirubin 0.9 (0.3-1.2) mg/dL AST 26 (0-34) U/L ALT 12 (10-49) U/L Alkaline Phosphatase 74 D (46-116) U/L Albumin 3.8 D 3.7 (3.4-4.8) gm/dL ABG Interpretation ABG results: 04/21/25 04/21/25 04/21/25 09:53 12:36 16:28 ABG pH 6.96 L* 7.15 L* D 7.29 L D ABG pCO2 84 H* 66 H D 48 D ABG pO2 56 L* 80 L D 222 H D ABG HCO3 19 L 23 23 ABG O2 Saturation 75 L 93 100 H ABG Base Excess -15 L -7 L -4 L 04/21/25 04/21/25 04/22/25 18:40 21:40 05:08 ABG pH 7.35 7.33 L 7.35 ABG pCO2 41 46 43 ABG pO2 205 H 93 D 135 H D ABG HCO3 22 24 24 ABG O2 Saturation 101 H 98 100 H ABG Base Excess -3 -2 -2 04/22/25 08:42 ABG pH 7.39 ABG pCO2 40 ABG pO2 79 L D ABG HCO3 24 ABG O2 Saturation 97 ABG Base Excess -1 Quality Measures Quality Measures none Medications Home Medications and Allergies Home Medications ?Medication ?Instructions ?Recorded ?Confirmed ?Type atorvastatin 20 mg tablet 20 mg PO .q day 04/21/2503/11 History hydrocodone 10 mg-acetaminophen 1 tab PO Q6H PRN pain 04/21/25 04/21/25 History 325 mg tablet lisinopril 20 mg tablet 20 mg PO .q day 04/21/2503/11 History sertraline 25 mg tablet 25 mg PO .q day 04/21/2503/11 History Allergies Allergy/AdvReac Type Severity Reaction Status Date / Time aspirin Allergy Intermediate Bleeding Verified 04/22/25 11:25 ibuprofen AdvReac Intermediate Bleeding Verified 04/22/25 11:25 bee stings Allergy Anaphylaxis Uncoded 04/22/25 11:25 Visit Medications Acetaminophen (Acetaminophen 325 Mg Tablet) 650 mg PO Q6H PRN PRN Reason: Pain (1-3) & Fever >100.4 Stop: 05/21/25 11:26 Aspirin (Aspirin 325 Mg Tablet) 325 mg PO QDAY COUNTS INCLUDE 234 BEDS AT THE [facility] Stop: 05/22/25 14:44 Atorvastatin Calcium (Atorvastatin Calcium 20 Mg Tablet) 80 mg NG HS COUNTS INCLUDE 234 BEDS AT THE [facility] Stop: 05/21/25 20:59 Last Admin: 04/21/25 21:44 Dose: 80 mg Carvedilol (Carvedilol 12.5 Mg Tablet) 12.5 mg PO BIDWM COUNTS INCLUDE 234 BEDS AT THE [facility] Stop: 05/22/25 17:29 Dextrose (Dextrose 50%-Water Inj 50 Ml Syringe) 50 ml IV Q15MIN PRN PRN Reason: BG <50 OR BG <70 & pt unresponsive Stop: 05/22/25 03:46 Furosemide (Furosemide Inj 10 Mg/Ml 4ml Vial) 40 mg IVP QDAY COUNTS INCLUDE 234 BEDS AT THE [facility] Stop: 05/22/25 08:59 Last Admin: 04/22/25 09:07 Dose: 40 mg Heparin Sodium/Dextrose (Heparin In D5w Ivpb) 25,000 unit in 250 mls @ 9.968 mls/hr IV .Q24H COUNTS INCLUDE 234 BEDS AT THE [facility]; Protocol Stop: 05/05/25 18:44 Last Titration: 04/22/25 11:30 Dose: 11.8 units/kg/hr, 15.08 mls/hr Lisinopril (Lisinopril 20 Mg Tablet) 20 mg PO QDAY COUNTS INCLUDE 234 BEDS AT THE [facility] Stop: 05/22/25 14:44 Nifedipine (Nifedipine 10 Mg Capsule) 10 mg PO TID COUNTS INCLUDE 234 BEDS AT THE [facility] Stop: 05/22/25 13:59 Last Admin: 04/22/25 13:04 Dose: 10 mg Pantoprazole Sodium (Pantoprazole Inj 40 Mg Vial) 40 mg IVP QDAY COUNTS INCLUDE 234 BEDS AT THE [facility] Stop: 05/21/25 11:29 Last Admin: 04/22/25 09:07 Dose: 40 mg Sennosides (Senna Tablet) 1 tab PO BID PRN; Protocol PRN Reason: CONSTIPATION Stop: 05/21/25 11:26 Discontinued Medications Albuterol/Ipratropium (Albuterol/Ipratropium (Duoneb) Rt Sheryl 3 Ml Nebu) 3 ml INH X1 ONE Stop: 04/21/25 08:36 Last Admin: 04/21/25 10:32 Dose: Not Given Clopidogrel Bisulfate (Clopidogrel Bisulfate 75 Mg Tablet) 300 mg PO X1 ONE Stop: 04/21/25 18:41 Last Admin: 04/21/25 21:45 Dose: 300 mg Dextrose (Dextrose 50%-Water Inj 50 Ml Syringe) 50 ml IV X1 ONE Stop: 04/22/25 03:51 Last Admin: 04/22/25 03:58 Dose: 50 ml Enalaprilat (Enalaprilat Inj 1.25 Mg/Ml Vial) 1.25 mg IVP X1 ONE Stop: 04/21/25 12:07 Last Admin: 04/21/25 12:36 Dose: 1.25 mg Etomidate (Etomidate Inj 2 Mg/Ml Vial 10 Ml) 40 mg IVP X1 ONE Stop: 04/21/25 09:20 Last Admin: 04/21/25 09:22 Dose: 40 mg Furosemide (Furosemide Inj 10 Mg/Ml 4ml Vial) 80 mg IVP X1 ONE Stop: 04/21/25 10:20 Last Admin: 04/21/25 10:38 Dose: 80 mg Heparin Sodium (Porcine) (Heparin Sod Inj 5000 Unit/Ml Vial) 5,000 unit SC Q8HR COUNTS INCLUDE 234 BEDS AT THE [facility] Stop: 05/05/25 13:59 Last Admin: 04/21/25 13:54 Dose: 5,000 unit Heparin Sodium (Porcine) (Heparin Sod Inj 5000 Unit/Ml Vial) 4,000 unit IV X1 ONE; Protocol Stop: 04/21/25 18:32 Last Admin: 04/21/25 20:55 Dose: 4,000 unit Heparin Sodium (Porcine) (Heparin Sod Inj 5000 Unit/Ml Vial) 2,000 unit IV X1 ONE; Protocol Stop: 04/22/25 04:15 Last Admin: 04/22/25 04:32 Dose: 2,000 unit Heparin Sodium (Porcine) (Heparin Sod Inj 5000 Unit/Ml Vial) 2,000 unit IVP X1 ONE Stop: 04/22/25 12:24 Last Admin: 04/22/25 13:05 Dose: 2,000 unit Propofol (Diprivan Ivpb) 1,000 mg in 100 mls @ 3.377 mls/hr IV .Q24H PRN; Protocol PRN Reason: PER PROTOCOL Stop: 05/21/25 09:29 Last Titration: 04/22/25 10:10 Dose: 0 mcg/kg/min, 0 mls/hr Azithromycin 500 mg/ Sodium (Chloride) 250 mls @ 250 mls/hr IV X1 ONE Stop: 04/21/25 10:50 Last Infusion: 04/21/25 12:10 Dose: Infused Ceftriaxone Sodium/Dextrose (Rocephin/D5w 1gm Iv Premix) 1 gm in 50 mls @ 100 mls/hr IV X1 ONE Stop: 04/21/25 10:20 Last Infusion: 04/21/25 11:00 Dose: Infused Potassium Chloride (Kcl Ivpb) 10 meq in 100 mls @ 100 mls/hr IV Q1H CURRY Stop: 04/21/25 16:44 Last Infusion: 04/21/25 15:05 Dose: Infused Fentanyl Citrate (Sublimaze Inj 2,500 Mcg/250 Ml Bag) 2,500 mcg in 250 mls @ 2.5 mls/hr IV .Q24H PRN; Protocol PRN Reason: PER PROTOCOL Stop: 04/26/25 12:59 Last Titration: 04/22/25 10:00 Dose: 0 mcg/hr, 0 mls/hr Magnesium Sulfate (Magnesium Sulfate Ivpb) 2 gm in 50 mls @ 25 mls/hr IV X1 ONE Stop: 04/22/25 13:21 Last Admin: 04/22/25 13:05 Dose: 25 mls/hr Insulin Human Regular (Insulin Hum Regular 1 Unit/0.01 Ml (Per Unit)) 5 unit IV X1 ONE Stop: 04/22/25 03:51 Last Admin: 04/22/25 03:59 Dose: 5 unit Methylprednisolone Sodium Succinate (Methylprednisolone Sod Succ 62.5 Mg/Ml 2ml Vial) 125 mg IVP X1 ONE Stop: 04/21/25 08:36 Last Admin: 04/21/25 09:08 Dose: 125 mg Metoprolol Tartrate (Metoprolol Tartrate Inj 1 Mg/Ml Amp 5 Ml) 5 mg IVP X1 ONE Stop: 04/21/25 08:36 Last Admin: 04/21/25 09:05 Dose: 5 mg Morphine Sulfate (Morphine Sulf Inj 10 Mg/Ml Vial) 2 mg IVP X1 ONE Stop: 04/21/25 08:38 Last Admin: 04/21/25 09:11 Dose: 2 mg Potassium Chloride (Potassium Chloride 10% 20 Meq/15 Ml Udc) 40 meq GT X1 ONE Stop: 04/21/25 12:14 Last Admin: 04/21/25 12:37 Dose: 40 meq Rocuronium [place] (Rocuronium Inj 10 Mg/Ml Vial 10 Ml) 100 mg IV X1 ONE Stop: 04/21/25 09:30 Last Admin: 04/21/25 09:30 Dose: 100 mg Rocuronium [place] (Rocuronium Inj 10 Mg/Ml Vial 10 Ml) 100 mg IV X1 ONE Stop: 04/21/25 09:30 Last Admin: 04/21/25 09:33 Dose: Not Given Sodium Polystyrene Sulfonate (Sod Polystyrene Sulfon Susp 15 Gm/60 Ml Btl) 30 gm NG X1 ONE Stop: 04/22/25 03:48 Last Admin: 04/22/25 04:00 Dose: 30 gm Succinylcholine Chloride (Succinylcholine Inj 20 Mg/Ml Vial 10 Ml) 200 mg IV X1 ONE Stop: 04/21/25 09:20 Last Admin: 04/21/25 09:23 Dose: 200 mg Assessment & Plan Plan Mr. Licea is a 64-year-old male with past medical history significant for uncontrolled hypertension, hyperlipidemia, depression, chronic back pain and history of stroke in 2009 without any residual deficits presented to the ED due to worsening shortness of breath. In the ED patient had become altered and ABG showed pH of 6.96, pCO2 84 and patient was intubated and admitted to the ICU. Patient was extubated on 04/22/2025, patient is alert and oriented. Cardiology is consulted for new onset of acute decompensated congestive heart failure. 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 Patient also has intermittent lower extremity edema with severe shortness of breath and is unable to walk more than 2 blocks at a time. Patient has some orthopnea, denies PND, chestpain, palpitations, diziness or syncopal episodes -Due to patient's clinical presentation of new onset of heart failure and flash pulmonary edema. Although at the time of admission patient was unable to give history of chest pain or pressure because patient was altered and was intubated. Troponins were elevated and patient has a long history of uncontrolled hypertension EKG: Sinus rhythm with rate 60, QTc 432 Ech foro done 04/21: Normal left ventricular size and function. Approximate ejection fraction is 50-55%. No wall motion abnormalities. Trace MR. Dilated IVC. Troponins 1.202 -> 1.594 -> 0.727 BNP 375 Plan: -Continue monitoring on telemetry -Continue heparin drip for now -Aspirin 325 mg p.o. daily, Coreg 12.5 mg p.o. BID, statin 80 mg and lisinopril 20 mg daily ordered -Continue Lasix 40 mg-daily -Patient will need coronary angiogram to definitively diagnose CAD and/or structural heart abnormalities-discussed with the patient and son at bedside -Keep potassium > 4 4 and magnesium > 2 #Acute hypoxic and hypercapnic respiratory failure- resolved #Hypertensive Emergency- resolved #Lactic acidosis #DINORA #Depression continue management as per primary team Assessment and plan discussed with my attending physician Dr. Patrice De León (PGY-2)- Internal medicine resident
[2025-04-22] MEDS: Heparin/D5w 25K 250 ML Ivpb 25,000 UNIT/250 ML BAG 15.08 UNIT IV (17:32)
[2025-04-22] MEDS: SERTRALINE HCL 25 MG TABLET PO (17:32)
[2025-04-22 18:50] LABS: Partial Thromboplastin Time 47.7 Seconds (22.0-36.0)
[2025-04-22] MEDS: ATORVASTATIN CALCIUM 20 MG TABLET 80 MG PO (21:21)
[2025-04-23] VITALS (27 sets, daily range): BP systolic 136–176; BP diastolic 85–111; PULSE 53–140; RESP 9–94; TEMP 36.4–36.7; O2SAT 92–97
[2025-04-23 01:58] LABS: Partial Thromboplastin Time 64.9 Seconds (22.0-36.0)
--- NOTE | 2025-04-23 04:00 | PC.NURSE ---
Pt transferred from ICU to room 265. Pt is alert/oriented x3. Respirations are even and unlabored. No s/s of acute distress noted. Bed to lowest position, call light within reach. Plan of care ongoing.
[2025-04-23 06:26] LABS: Basophils # (Auto) 0.0 Thou/mm3 (0.0-0.2); Basophils % (Auto) 0 % (0-2.5); Eosinophils # (Auto) 0.0 Thou/mm3 (0.0-0.5); Eosinophils % (Auto) 0 % (0-10); Hematocrit 43.8 % (41.0-53.0); Hemoglobin 15.2 g/dL (13.5-16.0); Immature Granulocytes Auto 0.09 Thou/mm3 (0.00-0.00); Lymphocytes # (Auto) 2.4 Thou/mm3 (1.0-4.8); Lymphocytes % (Auto) 13 % (10-50); Mean Corpuscular HGB Conc 34.7 g/dl (31.0-37.0); Mean Corpuscular Hemoglobin 29.9 pg (25.0-35.0); Mean Corpuscular Volume 86 fL (80-100); Monocytes # (Auto) 1.4 Thou/mm3 (0.0-0.8); Monocytes % (Auto) 8 % (0-12); Neutrophils # (Auto) 14.9 Thou/mm3 (1.8-7.7); Neutrophils % (Auto) 79 % (37-80); Nucleated Red Blood Cell # 0.00 Thou/mm3 (0.00-0.00); Nucleated Red Blood Cell % 0 /100 WBC (0); Platelet Count 212 Thou/mm3 (140-440); RDW Standard Deviation 39.9 fL (35.1-43.9); Red Blood Count 5.09 Miln/mm3 (4.50-5.90); White Blood Count 18.9 Thou/mm3 (3.8-10.6)
--- NOTE | 2025-04-23 06:41 | PC.NURSE ---
Report given to AZUCENA Alberto medical lab assistant.
[2025-04-23 06:50] LABS: INR 1.1 (0.9-1.3); Partial Thromboplastin Time 59.9 Seconds (22.0-36.0); Prothrombin Time 12.0 Seconds (9.0-12.2)
[2025-04-23 07:06] LABS: Alanine Aminotransferase 13 U/L (10-49); Albumin, Serum 4.0 gm/dL (3.4-4.8); Albumin/Globulin Ratio 1.3 (1.2-2.2); Alkaline Phosphatase 68 U/L (46-116); Anion Gap 11 (7-16); Aspartate Amino Transferase 31 U/L (0-34); BUN/Creatinine Ratio 16 Ratio (12-20); Bilirubin,Total 1.4 mg/dL (0.3-1.2); Blood Urea Nitrogen 16 mg/dL (9-23); Calcium 9.1 mg/dL (8.3-10.6); Calcium (Corrected) 9.1 mg/dL (8.5-10.1); Carbon Dioxide 25.3 mMol/L (20.0-31.0); Chloride 107 mMol/L (98-107); Creatinine (Component) 1.0 mg/dL (0.6-1.3); Estimated Creatinine Clearance 99.5 mL/min (>60); Globulin 3.0 gm/dL (2.3-3.5); Glucose 134 mg/dL (74-106); Magnesium 2.3 mg/dL (1.6-2.6); Osmolality,Calculated 288 (275-295); Phosphorous 2.7 mg/dL (2.4-5.1); Potassium 3.8 mMol/L (3.4-5.1); Sodium 143 mMol/L (136-145); Total Protein 7.0 gm/dL (5.7-8.2); eGFR > 60 See Note
[2025-04-23] MEDS: SERTRALINE HCL 25 MG TABLET PO (08:57)
[2025-04-23] MEDS: POTASSIUM CHL 10 mEq IVPB 10 MEQ/100 ML BAG 100 MEQ IV (08:59)
[2025-04-23] MEDS: FUROSEMIDE INJ 10 MG/ML 4ML VIAL 40 MG IVP (09:00)
[2025-04-23 09:07] LABS: Lactate (Lactic Acid) 1.4 mMol/L (0.4-2.0)
--- NOTE | 2025-04-23 14:23 | ESOP_ITS ---
RE: LUISANA COLLADO : 1960 DATE OF OPERATION: 04/23/2025 PROCEDURES PERFORMED: 1. Diagnostic left heart cardiac catheterization, selective coronary angiogram, and left ventricular angiogram, CPT 08155. 2. Conscious sedation for 30-minute duration. 3. Ultrasound-guided access, right radial artery. DIAGNOSES: Acute yfa-SG-ivvjcyq elevation myocardial infarction, acute decompensated congestive heart failure, and acute pulmonary edema. HISTORY AND INDICATIONS: The patient is a 64-year-old male with a history of longstanding hypertension. He came to the hospital with acute pulmonary edema, hypoxic respiratory failure requiring intubation and mechanical ventilation. Troponin level went up to 1.5, delta troponin and EKG nonspecific changes because of acute fgn-EH-gjgnbjw elevation myocardial infarction and pulmonary edema. Right cardiac catheterization and coronary angiogram was recommended to assess if he is a candidate for intervention and revascularization. DESCRIPTION OF PROCEDURE: The patient was brought to the cardiac catheterization laboratory where he was given 2 mg of Versed, 100 mcg of fentanyl for sedation. Right radial approach was taken. Right radial artery cannulated by micropuncture technique. A 6-[place] was introduced. Selective right and left coronary angiogram was performed by TIG-4 diagnostic catheter. Left heart catheterization and left ventricular angiogram performed by TIG-4 diagnostic catheter. The patient tolerated the procedure well with no complications. Radial cocktail was given. Initial blood pressure was high, lower to normal. Coronary angiogram showed the following findings: Right coronary artery is large and dominant, appears normal. PDA and PL branches normal. Left coronary system. Left main coronary is normal. Left anterior descending artery appears normal. No significant stenosis. Left circumflex artery is normal. Left ventricular pressure is 124/5, EDP 15, aortic pressure 124/70. No gradient across the aortic valve. Left ventricular angiogram showed normal left ventricular wall motion ejection fraction of 60%. SUMMARY OF FINDINGS AND SUGGESTIONS: 1. Nonobstructive normal epicardial coronary arteries. 2. Normal left ventricular systolic function. RECOMMENDATIONS: The patient is reassured that there is no significant obstructive coronary artery disease. Elevated troponin is type 2 troponin due to demand ischemia due to acute pulmonary edema. The patient was recommended aggressive management of hypertension with a combination of drug therapy including VIN inhibitor, ARB, and possibly add amlodipine, but blood pressure needs to be controlled well as the patient appears to have acute decompensated congestive heart failure pulmonary edema secondary to severe hypertension causing diastolic dysfunction and acute heart failure. The patient was counseled to avoid any high salt-containing foods and keep the blood pressure controlled very well. Prognosis is excellent. The patient does not require any aspirin or Plavix. Both can be discontinued. No anticoagulation is recommended. DT: 13:16:36 TT: 13:49:00 Ref: [id number] - TID: [id number]
--- NOTE | 2025-04-23 15:33 | PD.RESPRO ---
Documentation for date of: 04/23/25 Exam Vital Signs Temp Pulse Resp BP Pulse Ox O2 Del Method O2 Flow Rate 97.6 F 66 18 174/104 H 95 Room Air 6 04/23/25 13:22 04/23/25 15:00 04/23/25 15:00 04/23/25 15:00 04/23/25 15:00 04/23/25 15:00 04/22/25 10:35 FiO2 30 04/22/25 21:45 Objective Labs 04/23/25 05:44 04/23/25 05:44 Labs: Laboratory Results - last 24 hr 04/22/25 04/23/25 04/23/25 17:46 00:50 05:44 WBC 18.9 H D RBC 5.09 Hgb 15.2 Hct 43.8 MCV 86 MCH 29.9 MCHC 34.7 RDW Std Deviation 39.9 Plt Count 212 Neut % (Auto) 79 Lymph % (Auto) 13 Cameron % (Auto) 8 Eos % (Auto) 0 Baso % (Auto) 0 Neut # (Auto) 14.9 H Lymph # (Auto) 2.4 Cameron # (Auto) 1.4 H Eos # (Auto) 0.0 Baso # (Auto) 0.0 Immature Gran # (Auto) 0.09 H Absolute Nucleated RBC 0.00 Immature Gran % 1 H Nucleated RBC % 0 PT 12.0 INR 1.1 APTT 47.7 H 64.9 H D 59.9 H Sodium 143 Potassium 3.8 D Chloride 107 Carbon Dioxide 25.3 Anion Gap 11 BUN 16 Creatinine 1.0 Estim Creat Clear Calc 99.5 eGFR > 60 BUN/Creatinine Ratio 16 Glucose 134 H Calculated Osmolality 288 Lactic Acid Calcium 9.1 Corrected Calcium 9.1 Phosphorus 2.7 Magnesium 2.3 Total Bilirubin 1.4 H D AST 31 ALT 13 Alkaline Phosphatase 68 Total Protein 7.0 Albumin 4.0 Globulin 3.0 Albumin/Globulin Ratio 1.3 04/23/25 08:47 WBC RBC Hgb Hct MCV MCH MCHC RDW Std Deviation Plt Count Neut % (Auto) Lymph % (Auto) [place] % (Auto) Eos % (Auto) Baso % (Auto) Neut # (Auto) Lymph # (Auto) Cameron # (Auto) Eos # (Auto) Baso # (Auto) Immature Gran # (Auto) Absolute Nucleated RBC Immature Gran % Nucleated RBC % PT INR APTT Sodium Potassium Chloride Carbon Dioxide Anion Gap BUN Creatinine Estim Creat Clear Calc eGFR BUN/Creatinine Ratio Glucose Calculated Osmolality Lactic Acid 1.4 Calcium Corrected Calcium Phosphorus Magnesium Total Bilirubin AST ALT Alkaline Phosphatase Total Protein Albumin Globulin Albumin/Globulin Ratio ABG Interpretation ABG results: 04/21/25 04/21/25 04/21/25 09:53 12:36 16:28 ABG pH 6.96 L* 7.15 L* D 7.29 L D ABG pCO2 84 H* 66 H D 48 D ABG pO2 56 L* 80 L D 222 H D ABG HCO3 19 L 23 23 ABG O2 Saturation 75 L 93 100 H ABG Base Excess -15 L -7 L -4 L 04/21/25 04/21/25 04/22/25 18:40 21:40 05:08 ABG pH 7.35 7.33 L 7.35 ABG pCO2 41 46 43 ABG pO2 205 H 93 D 135 H D ABG HCO3 22 24 24 ABG O2 Saturation 101 H 98 100 H ABG Base Excess -3 -2 -2 04/22/25 08:42 ABG pH 7.39 ABG pCO2 40 ABG pO2 79 L D ABG HCO3 24 ABG O2 Saturation 97 ABG Base Excess -1 Quality Measures Quality Measures none Assessment & Plan Assessment Current Active Medications: Generic Name Dose Route Start Last Admin Trade Name Freq PRN Reason Stop Dose Admin Acetaminophen 650 mg 04/21/25 11:27 Acetaminophen 325 Mg Tablet PO 05/21/25 11:26 Q6H PRN Pain (1-3) & Fever >100.4 Atorvastatin Calcium 80 mg 04/22/25 21:00 04/22/25 21:21 Atorvastatin Calcium 20 Mg Tablet PO 05/22/25 20:59 80 mg HS CURRY Administration Carvedilol 12.5 mg 04/22/25 17:30 04/23/25 08:58 Carvedilol 12.5 Mg Tablet PO 05/22/25 17:29 12.5 mg BIDWM CURRY Administration Dextrose 50 ml 04/22/25 03:47 Dextrose 50%-Water Inj 50 Ml Syringe IV 05/22/25 03:46 Q15MIN PRN BG <50 OR BG <70 & pt unresponsive Furosemide 40 mg 04/22/25 09:00 04/23/25 09:00 Furosemide Inj 10 Mg/Ml 4ml Vial IVP 05/22/25 08:59 40 mg QDAY CURRY Administration Lisinopril 20 mg 04/22/25 14:45 04/23/25 08:59 Lisinopril 20 Mg Tablet PO 05/22/25 14:44 20 mg QDAY CURRY Administration Nifedipine 10 mg 04/22/25 14:00 04/23/25 05:34 Nifedipine 10 Mg Capsule PO 05/22/25 13:59 Not Given TID CURRY Pantoprazole Sodium 40 mg 04/21/25 11:30 04/23/25 08:57 Pantoprazole Inj 40 Mg Vial IVP 05/21/25 11:29 40 mg QDAY CURRY Administration Sennosides 1 tab 04/21/25 11:27 Senna Tablet PO 05/21/25 11:26 BID PRN CONSTIPATION Protocol Sertraline HCl 25 mg 04/22/25 16:45 04/23/25 08:57 Sertraline Hcl 25 Mg Tablet PO 05/22/25 16:44 25 mg QDAY CURRY Administration
--- NOTE | 2025-04-23 15:43 | PC.SS ---
Rounding: Plan for heart cath
--- NOTE | 2025-04-23 16:36 | PC.NURSE ---
bedside report given to AZUCENA Carrillo RN and patient aware of date and time Blue [place] and Clear Tegaderm can be removed There is no swelling, hematoma or any signs of bleeding on the right wrist where TR Band was removed from RN aware that DR Ibrahim doesnt want patient to continue taking aspirin or Heparin drip (i myself discontinued both medication from the DEC) all questions answered accordingly from RN and Patient
--- NOTE | 2025-04-23 20:07 | ESPR_ITS ---
<Statement entered by Janet Martinez MD - 04/23/25 20:25> In summary 64-year-old male patient with history of HTN, HLD, depression, chronic pain, presenting with worsening dyspnea. In ED he was found hypertensive 174/101, desatting to 88% on room air. BNP was slightly elevated, had mild lactic acidosis. Blood gas with significant acidosis with pH 6.96, [id number], bicarb 19. He had NSTEMI type II with peak troponin 1.594. He had troponin elevation of he required ICU admission and intubation for hypoxemia and flash pulmonary edema. He was started on diuresis and STEROIDS. Additionally, hypertensive emergency was managed with NIFEDIPINE. Currently on liter oxygen, satting well. Additional problems include hyperkalemia of 5.5 which resolved. UA was negative for UTI but did show nephrotic range proteinuria, likely hypertensive. Had mild DINORA with creatinine of 1.4, lactic acidosis 3.0, both resolved with fluids, creatinine 1.0 today. Acidosis also resolved. Currently has leukocytosis of 18.9, likely from STEROID, as he is afebrile. Audiology team is following. Echo showed EF 50-55%, mildly enlarged RV, trace MR, dilated IVC. Angiogram showed nonobstructive normal epicardial coronary arteries, normal LV systolic function. Recommendations include managing hypertension, currently on LISINOPRIL, NIFEDIPINE, and CARVEDILOL. Lipid panel showed TG 83, cholesterol 159, LDL 92, continued on high-dose statin. Continues on aggressive LASIX, with good response in terms of urine output. Overall good response to management. Pending physical therapy and further recommendations from cardiology. Case was discussed with attending physician. Janet Martinez DO PGY II This document was transcribed using voice recognition technology. Minor inaccuracies may be present. Documentation for date of: 04/23/25 Subjective Subjective Interval history: Pt was seen and examined at bedside. Patient is A&O x4, not in distress. Denies SOB, chest pain, abdominal pain, or headache. Exam Vital Signs Temp Pulse Resp BP Pulse Ox O2 Del Method O2 Flow Rate 97.7 F 62 19 140/85 H 97 [place] 6 04/23/25 16:25 04/23/25 16:35 04/23/25 16:25 04/23/25 16:35 04/23/25 16:25 04/23/25 16:25 04/22/25 10:35 FiO2 30 04/22/25 21:45 Narrative Exam General: Alert and oriented x3, No apparent distress. Skin: Intact, Warm, no rashes. HEENT: Normocephalic, Atraumatic. Normal neck range of motion, Supple. Trachea midline. Respiratory: Lungs are clear to auscultation, Breath sounds are equal bilaterally with equal chest expansion. Cardiovascular: RRR, normal S1, S2, No murmurs. Distal pulses 2+ Musculoskeletal: No swelling, moving all 4 extremities with FROM Neurologic: Alert, Oriented, No focal deficits. Moving all 4 extremities spontaneously Psych: Thoughts linear and responses appropriate. Objective Labs 04/24/25 06:24 04/24/25 06:24 Labs: Laboratory Results - last 24 hr 04/23/25 04/23/25 04/23/25 00:50 05:44 08:47 WBC 18.9 H D RBC 5.09 Hgb 15.2 Hct 43.8 MCV 86 MCH 29.9 MCHC 34.7 RDW Std Deviation 39.9 Plt Count 212 Neut % (Auto) 79 Lymph % (Auto) 13 [place] % (Auto) 8 Eos % (Auto) 0 Baso % (Auto) 0 Neut # (Auto) 14.9 H Lymph # (Auto) 2.4 [place] # (Auto) 1.4 H Eos # (Auto) 0.0 Baso # (Auto) 0.0 Immature Gran # (Auto) 0.09 H Absolute Nucleated RBC 0.00 Immature Gran % 1 H Nucleated RBC % 0 PT 12.0 INR 1.1 APTT 64.9 H D 59.9 H Sodium 143 Potassium 3.8 D Chloride 107 Carbon Dioxide 25.3 Anion Gap 11 BUN 16 Creatinine 1.0 Estim Creat Clear Calc 99.5 eGFR > 60 BUN/Creatinine Ratio 16 Glucose 134 H Calculated Osmolality 288 Lactic Acid 1.4 Calcium 9.1 Corrected Calcium 9.1 Phosphorus 2.7 Magnesium 2.3 Total Bilirubin 1.4 H D AST 31 ALT 13 Alkaline Phosphatase 68 Total Protein 7.0 Albumin 4.0 Globulin 3.0 Albumin/Globulin Ratio 1.3 ABG Interpretation ABG results: 04/21/25 04/21/25 04/21/25 09:53 12:36 16:28 ABG pH 6.96 L* 7.15 L* D 7.29 L D ABG pCO2 84 H* 66 H D 48 D ABG pO2 56 L* 80 L D 222 H D ABG HCO3 19 L 23 23 ABG O2 Saturation 75 L 93 100 H ABG Base Excess -15 L -7 L -4 L 04/21/25 04/21/25 04/22/25 18:40 21:40 05:08 ABG pH 7.35 7.33 L 7.35 ABG pCO2 41 46 43 ABG pO2 205 H 93 D 135 H D ABG HCO3 22 24 24 ABG O2 Saturation 101 H 98 100 H ABG Base Excess -3 -2 -2 04/22/25 08:42 ABG pH 7.39 ABG pCO2 40 ABG pO2 79 L D ABG HCO3 24 ABG O2 Saturation 97 ABG Base Excess -1 Quality Measures Quality Measures none Assessment & Plan Assessment Current Active Medications: Generic Name Dose Route Start Last Admin Trade Name Freq PRN Reason Stop Dose Admin Acetaminophen 650 mg 04/21/25 11:27 Acetaminophen 325 Mg Tablet PO 05/21/25 11:26 Q6H PRN Pain (1-3) & Fever >100.4 Atorvastatin Calcium 80 mg 04/22/25 21:00 04/22/25 21:21 Atorvastatin Calcium 20 Mg Tablet PO 05/22/25 20:59 80 mg HS CURRY Administration Carvedilol 12.5 mg 04/22/25 17:30 04/23/25 16:35 Carvedilol 12.5 Mg Tablet PO 05/22/25 17:29 12.5 mg BIDWM CURRY Administration Dextrose 50 ml 04/22/25 03:47 Dextrose 50%-Water Inj 50 Ml Syringe IV 05/22/25 03:46 Q15MIN PRN BG <50 OR BG <70 & pt unresponsive Furosemide 40 mg 04/22/25 09:00 04/23/25 09:00 Furosemide Inj 10 Mg/Ml 4ml Vial IVP 05/22/25 08:59 40 mg QDAY CURRY Administration Lisinopril 20 mg 04/22/25 14:45 04/23/25 08:59 Lisinopril 20 Mg Tablet PO 05/22/25 14:44 20 mg QDAY CURRY Administration Nifedipine 10 mg 04/22/25 14:00 04/23/25 16:35 Nifedipine 10 Mg Capsule PO 05/22/25 13:59 10 mg TID CURRY Administration Pantoprazole Sodium 40 mg 04/21/25 11:30 04/23/25 08:57 Pantoprazole Inj 40 Mg Vial IVP 05/21/25 11:29 40 mg QDAY CURRY Administration Sennosides 1 tab 04/21/25 11:27 Senna Tablet PO 05/21/25 11:26 BID PRN CONSTIPATION Protocol Sertraline HCl 25 mg 04/22/25 16:45 04/23/25 08:57 Sertraline Hcl 25 Mg Tablet PO 05/22/25 16:44 25 mg QDAY CURRY Administration Plan Summary Mr. Sarmiento is a 64-year-old male with past medical history of hypertension hyperlipidemia depression and chronic pain who presented to [facility] emergency department on 04/21/2025 with a chief complaint of worsening dyspnea. Patient was found to be in hypercapnic respiratory acidosis with pH 6.96, PCO2 284, without appropriate compensatory metabolic alkalosis HCO3 19. He was intubated in the emergency department and placed on sedation and admitted to ICU for further care. Unstable vitals in the ED included BP 174/101, SPO2 88% on RA. UA was positive for proteinuria and hematuria, likely due to uncontrolled hypertension. #Hx of Acute decompensated heart failure Patient presented to the ED with progressive dyspnea and on exam was found to have pitting edema in the lower extremity. Initial Chest x-ray showed enlargement of cardiac contour with prominent vascular congestion. Repeat CXR at the time of ICU downgrade showed improvement with milder vascular congestion and increased clearance of pulmonary infiltrates. Echo 04/21: Normal left ventricular size and function. Approximate ejection fraction is 50-55%. No wall motion abnormalities The RV is mildly enlarge with normal in size and systolic function. Trace MR. Dilated IVC. Angiogram showed nonobstructive normal epicardial coronary arteries, normal LV systolic function. Plan: - Lasix 40 mg daily pending continued improvement in serum creatinine - Strict intake and output - Daily fluid restriction 1500 cc - Lasix 40 mg daily - BiPAP/CPAP at bedtime - Follow volume status - Strict ins and outs - Daily CMP - Pending further cardiology recommendations #Hx of NSTEMI Patient did complain of chest pressure, initial troponin in the ED was negative, repeat troponin 1.201. EKG in ED showed no acute ST?T changes. Troponin peak 1.594 and improved to 0.727 in AM 7/6 in ICU. Patient was given loading dose of Plavix. Aspirin withheld due to allergy. #Hypertension BP on arrival was 174/101, fluctuating to 200+/130 with resulting flash pulmonary edema. Patient received metoprolol in the ED, was given Vasotec x 1 Continues to be hypertensive after extubation, 140-175/85-110 Plan: - Nifedipine 10 mg p.o. 3 times daily - Lisinopril 20mg p.o. Qday - carvedilol 12.5mg p.o. bid #Hyperlipidemia Patient has history of controlled hyperlipidemia TG 83, cholesterol 159, LDL 92 - Continue home atorvastatin 20 mg #Depression Likely has history of depression/anxiety, patient is on sertraline at home daily. Plan: - Resume home sertraline #Asymptomatic bacteriuria Rare bacteria noted in urine analysis Patient asymptomatic on presentation. #Hypertensive Emergency (resolved) #Hyperkalemia (resolved) #Hypomagnesemia (resolved) #Acute hypoxic and hypercapnic respiratory failure (resolved) # Flash pulmonary edema (resoved) #Lactic acidosis (resolved) #DINORA (resolved) Health Maintanance Nutrition: Cardiac diet DVT Prophylaxis: heparin drip, GI Prophylaxis Protonix IV Code Status: Full Code Disposition: Med Tele Case was discussed with attending physician, Dr. Hines, and senior resident Dr. Martinez. Vicki Agudelo, DO PGY I Attending Provider Attestation/Addendum Patient with uncontrolled hypertension aadmitted for CHF improved with diuretic treatment successfuly extubated in ICU. Continue current treatment as above. Discussed with housestaff.
[2025-04-23] MEDS: ATORVASTATIN CALCIUM 20 MG TABLET 80 MG PO (21:10)
[2025-04-24] VITALS (12 sets, daily range): BP systolic 113–155; BP diastolic 76–88; PULSE 56–87; RESP 14–97; TEMP 36.1–36.8; O2SAT 90–96; BMI 38.7
[2025-04-24 06:54] LABS: Partial Thromboplastin Time 24.8 Seconds (22.0-36.0)
[2025-04-24 06:58] LABS: Basophils # (Auto) 0.0 Thou/mm3 (0.0-0.2); Basophils % (Auto) 0 % (0-2.5); Eosinophils # (Auto) 0.0 Thou/mm3 (0.0-0.5); Eosinophils % (Auto) 0 % (0-10); Hematocrit 45.1 % (41.0-53.0); Hemoglobin 15.7 g/dL (13.5-16.0); Immature Granulocytes Auto 0.05 Thou/mm3 (0.00-0.00); Lymphocytes # (Auto) 2.4 Thou/mm3 (1.0-4.8); Lymphocytes % (Auto) 18 % (10-50); Mean Corpuscular HGB Conc 34.8 g/dl (31.0-37.0); Mean Corpuscular Hemoglobin 29.5 pg (25.0-35.0); Mean Corpuscular Volume 85 fL (80-100); Monocytes # (Auto) 1.2 Thou/mm3 (0.0-0.8); Monocytes % (Auto) 9 % (0-12); Neutrophils # (Auto) 9.5 Thou/mm3 (1.8-7.7); Neutrophils % (Auto) 72 % (37-80); Nucleated Red Blood Cell # 0.00 Thou/mm3 (0.00-0.00); Nucleated Red Blood Cell % 0 /100 WBC (0); Platelet Count 207 Thou/mm3 (140-440); RDW Standard Deviation 38.6 fL (35.1-43.9); Red Blood Count 5.32 Miln/mm3 (4.50-5.90); White Blood Count 13.2 Thou/mm3 (3.8-10.6)
[2025-04-24 07:25] LABS: Alanine Aminotransferase 13 U/L (10-49); Albumin, Serum 4.2 gm/dL (3.4-4.8); Albumin/Globulin Ratio 1.4 (1.2-2.2); Alkaline Phosphatase 74 U/L (46-116); Anion Gap 11 (7-16); Aspartate Amino Transferase 23 U/L (0-34); BUN/Creatinine Ratio 16 Ratio (12-20); Bilirubin,Total 2.1 mg/dL (0.3-1.2); Blood Urea Nitrogen 14 mg/dL (9-23); Calcium 9.3 mg/dL (8.3-10.6); Calcium (Corrected) 9.3 mg/dL (8.5-10.1); Carbon Dioxide 27.6 mMol/L (20.0-31.0); Chloride 105 mMol/L (98-107); Creatinine (Component) 0.9 mg/dL (0.6-1.3); Estimated Creatinine Clearance 108.8 mL/min (>60); Globulin 3.0 gm/dL (2.3-3.5); Glucose 117 mg/dL (74-106); Magnesium 2.0 mg/dL (1.6-2.6); Osmolality,Calculated 288 (275-295); Phosphorous 3.3 mg/dL (2.4-5.1); Potassium 3.5 mMol/L (3.4-5.1); Sodium 144 mMol/L (136-145); Total Protein 7.2 gm/dL (5.7-8.2); eGFR > 60 See Note
[2025-04-24] MEDS: FUROSEMIDE INJ 10 MG/ML 4ML VIAL 40 MG IVP (09:14)
[2025-04-24] MEDS: SERTRALINE HCL 25 MG TABLET PO (09:15)
[2025-04-24] MEDS: Magnesium Sulfate 2 GM Ivpb 2 GM/50 ML BAG IV (09:15)
--- NOTE | 2025-04-24 10:01 | XR_ITS ---
Examination: Abdomen sonogram, complete Date and time of exam: April 24, 2025 1259 hours INDICATIONS: Unspecified liver disease diagnosis. Technique: Multiple real-time grayscale transabdominal sonographic images of the abdomen have been obtained. Findings: Negative for gallstones Gallbladder wall 0.38 cm no edema Common bile duct 0.4 cm Pancreatic head 3.0 cm Aorta not enlarged Liver 16.0 cm fatty infiltration Normal hepatopedal portal venous flow Patent IVC Right kidney 11.0 cm cortex 2.0 cm Left kidney 12.8 cm cortex 2.0 cm Spleen 11.5 cm IMPRESSION: Negative for cholelithiasis Borderline thickening gallbladder wall, clinical correlation advised
[2025-04-24] MEDS: POLYETHYLENE GLYCOL 17 GM PACKET PO (10:18)
--- NOTE | 2025-04-24 10:38 | PC.SS ---
Torsten Licea is a 64-year-old male admitted to [facility] for AHRF. SS conducted bedside contact with the patient to complete initial assessment and to discuss discharge planning. Role and reason explained. Patient confirmed demographic information. Patient identifies his Son, Rodolfo licea [phone] as his surrogate decision maker. Pt states he lives with a friend, and is able to complete all ADL?s independently. Pt does not possesses any DME. Pts PCP is Dr. Downing. Pharmacy of choice is [facility] in [place]. Discharge options discussed and the pt wishes to return home.? Pt family will provide transport at the time of DC. No further intervention required at this time, sr. social media & mobile manager would be available to address any further concerns. DC Plan: Home Contact: SonRodolfo Address: Confirmed on face sheet PCP: [place]
--- NOTE | 2025-04-24 13:29 | ESPR_ITS ---
<Statement entered by Margaret Ibrahim MD - 04/25/25 00:29> The patient appears to be clinically doing well postcardiac catheterization negative coronary angiogram has hypertensive heart disease HFpEF acute decompensation of diastolic heart failure secondary severe hypertension recommend strongly to control hypertension prognosis fair recommend to follow with primary care physician see me as necessary. Agree with the treatment plan recommendation as documented by Dr. De León PGY 2 Documentation for date of: 04/24/25 Subjective Subjective Interval history: Pt is seen at bedside, doing well. Does not have any cardiac complaints. Radial pulse is palpated. Pt underwent angiogram on 04/23 and no CAD is found. Pts is counseled extensively on tight BP controlled and compliance with medications. Pt's symptoms were likely induced by uncontrolled HTN and non compliance. Pt has no cardiac complaints. Exam Vital Signs Temp Pulse Resp BP Pulse Ox O2 Del Method O2 Flow Rate 97.2 F 66 16 148/86 H 92 L Room Air 6 04/24/25 08:00 04/24/25 09:15 04/24/25 08:00 04/24/25 09:15 04/24/25 08:00 04/24/25 08:00 04/22/25 10:35 FiO2 30 04/22/25 21:45 Narrative Exam GENERAL: A&Ox3, Obese male, cooperative, Not in acute distress NEURO: no focal neurological deficits noted HEENT: Atraumatic, Normocephalic. mucous membranes moist. Eyes open, symmetrical, & clear HEART: Normal Heart Sounds LUNGS: Clear to auscultation with no wheezing or crackles. ABDOMEN: soft, non-distended, non-tender, bowel sounds heard, no guarding or rebound tenderness SKIN: No Rash or ecchymoses EXTREMITIES: No edema, tenderness, able to move all 4 extremities, pedal pulses palpated Objective Labs 04/24/25 06:24 04/24/25 06:24 Labs: Laboratory Results - last 24 hr 04/24/25 06:24 WBC 13.2 H D RBC 5.32 Hgb 15.7 Hct 45.1 MCV 85 MCH 29.5 MCHC 34.8 RDW Std Deviation 38.6 Plt Count 207 Neut % (Auto) 72 Lymph % (Auto) 18 [place] % (Auto) 9 Eos % (Auto) 0 Baso % (Auto) 0 Neut # (Auto) 9.5 H Lymph # (Auto) 2.4 [place] # (Auto) 1.2 H Eos # (Auto) 0.0 Baso # (Auto) 0.0 Immature Gran # (Auto) 0.05 H Absolute Nucleated RBC 0.00 Immature Gran % 0 Nucleated RBC % 0 APTT 24.8 D Sodium 144 Potassium 3.5 Chloride 105 Carbon Dioxide 27.6 Anion Gap 11 BUN 14 Creatinine 0.9 Estim Creat Clear Calc 108.8 eGFR > 60 BUN/Creatinine Ratio 16 Glucose 117 H Calculated Osmolality 288 Calcium 9.3 Corrected Calcium 9.3 Phosphorus 3.3 Magnesium 2.0 Total Bilirubin 2.1 H D AST 23 ALT 13 Alkaline Phosphatase 74 Total Protein 7.2 Albumin 4.2 Globulin 3.0 Albumin/Globulin Ratio 1.4 ABG Interpretation ABG results: 04/21/25 04/21/25 04/21/25 09:53 12:36 16:28 ABG pH 6.96 L* 7.15 L* D 7.29 L D ABG pCO2 84 H* 66 H D 48 D ABG pO2 56 L* 80 L D 222 H D ABG HCO3 19 L 23 23 ABG O2 Saturation 75 L 93 100 H ABG Base Excess -15 L -7 L -4 L 04/21/25 04/21/25 04/22/25 18:40 21:40 05:08 ABG pH 7.35 7.33 L 7.35 ABG pCO2 41 46 43 ABG pO2 205 H 93 D 135 H D ABG HCO3 22 24 24 ABG O2 Saturation 101 H 98 100 H ABG Base Excess -3 -2 -2 04/22/25 08:42 ABG pH 7.39 ABG pCO2 40 ABG pO2 79 L D ABG HCO3 24 ABG O2 Saturation 97 ABG Base Excess -1 Quality Measures Quality Measures none Assessment & Plan Assessment Current Active Medications: Generic Name Dose Route Start Last Admin Trade Name Freq PRN Reason Stop Dose Admin Acetaminophen 650 mg 04/21/25 11:27 Acetaminophen 325 Mg Tablet PO 05/21/25 11:26 Q6H PRN Pain (1-3) & Fever >100.4 Atorvastatin Calcium 80 mg 04/22/25 21:00 04/23/25 21:10 Atorvastatin Calcium 20 Mg Tablet PO 05/22/25 20:59 80 mg HS CURRY Administration Carvedilol 12.5 mg 04/22/25 17:30 04/24/25 09:14 Carvedilol 12.5 Mg Tablet PO 05/22/25 17:29 12.5 mg BIDWM CURRY Administration Dextrose 50 ml 04/22/25 03:47 Dextrose 50%-Water Inj 50 Ml Syringe IV 05/22/25 03:46 Q15MIN PRN BG <50 OR BG <70 & pt unresponsive Furosemide 40 mg 04/22/25 09:00 04/24/25 09:14 Furosemide Inj 10 Mg/Ml 4ml Vial IVP 05/22/25 08:59 40 mg QDAY CURRY Administration Lisinopril 20 mg 04/24/25 07:35 04/24/25 09:15 Lisinopril 20 Mg Tablet PO 05/24/25 07:34 20 mg QDAY CURRY Administration Nifedipine 10 mg 04/22/25 14:00 04/24/25 06:01 Nifedipine 10 Mg Capsule PO 05/22/25 13:59 10 mg TID CURRY Administration Pantoprazole Sodium 40 mg 04/21/25 11:30 04/24/25 09:14 Pantoprazole Inj 40 Mg Vial IVP 05/21/25 11:29 40 mg QDAY CURRY Administration Sennosides 1 tab 04/21/25 11:27 Senna Tablet PO 05/21/25 11:26 BID PRN CONSTIPATION Protocol Sertraline HCl 25 mg 04/22/25 16:45 04/24/25 09:15 Sertraline Hcl 25 Mg Tablet PO 05/22/25 16:44 25 mg QDAY CURRY Administration Plan Mr. Licea is a 64-year-old male with past medical history significant for uncontrolled hypertension, hyperlipidemia, depression, chronic back pain and history of stroke in 2009 without any residual deficits presented to the ED due to worsening shortness of breath. In the ED patient had become altered and ABG showed pH of 6.96, pCO2 84 and patient was intubated and admitted to the ICU. Patient was extubated on 04/22/2025, patient is alert and oriented. Cardiology is consulted for new onset of acute decompensated congestive heart failure. #Acute decompensated congestive HF #Flash pulmonary edema, resolved secondary to #severe hypertension causing diastolic dysfunction #Tachycardia induced cardiomyopathy #NSTEMI type ll #Primary hypertension, uncontrolled #Hyperlipidemia - Patient presents with worsening exertional dyspnea over the past 6 months and now has progressed to dyspnea at rest. Patient also has intermittent lower extremity edema with severe shortness of breath and is unable to walk more than 2 blocks at a time. Patient has some orthopnea, denies PND, chestpain, palpitations, diziness or syncopal episodes -Due to patient's clinical presentation of new onset of heart failure and flash pulmonary edema. Although at the time of admission patient was unable to give history of chest pain or pressure because patient was altered and was intubated. Troponins were elevated and patient has a long history of uncontrolled hypertension EKG: Sinus rhythm with rate 60, QTc 432 Ech foro done 04/21: Normal left ventricular size and function. Approximate ejection fraction is 50-55%. No wall motion abnormalities. Trace MR. Dilated IVC. Troponins 1.202 -> 1.594 -> 0.727 BNP 375 Plan: -Continue monitoring on telemetry -Coreg 12.5 mg p.o. BID, statin 80 mg and lisinopril 20 mg daily ordered -Continue Lasix 40 mg-daily -Patient's coronary angiogram on 04/23 was unremarkable therefore no anticoagulation needed -Recommend avoiding high salt-containing foods and keep the blood pressure controlled very well. -Keep potassium > 4 and magnesium > 2 #Acute hypoxic and hypercapnic respiratory failure- resolved #Hypertensive Emergency- resolved #Lactic acidosis #DINORA #Depression continue management as per primary team Assessment and plan discussed with my attending physician Dr. Patrice De León (PGY-2)- Internal medicine resident
--- NOTE | 2025-04-24 15:12 | PC.PT ---
PT eval only. Patient was xI with bed mobility, transfers, and ambulation. Patient is safe to ambulate to the bathroom and in the halls with no staff and no AD. RN made aware.
--- NOTE | 2025-04-24 16:01 | ESPR_ITS ---
Documentation for date of: 04/24/25 Exam Vital Signs Temp Pulse Resp BP Pulse Ox O2 Del Method O2 Flow Rate 97.2 F 72 16 143/87 H 92 L Room Air 6 04/24/25 08:00 04/24/25 14:38 04/24/25 08:00 04/24/25 14:38 04/24/25 08:00 04/24/25 08:00 04/22/25 10:35 FiO2 30 04/22/25 21:45 Objective Labs 04/24/25 06:24 04/24/25 06:24 Labs: Laboratory Results - last 24 hr 04/24/25 06:24 WBC 13.2 H D RBC 5.32 Hgb 15.7 Hct 45.1 MCV 85 MCH 29.5 MCHC 34.8 RDW Std Deviation 38.6 Plt Count 207 Neut % (Auto) 72 Lymph % (Auto) 18 [place] % (Auto) 9 Eos % (Auto) 0 Baso % (Auto) 0 Neut # (Auto) 9.5 H Lymph # (Auto) 2.4 [place] # (Auto) 1.2 H Eos # (Auto) 0.0 Baso # (Auto) 0.0 Immature Gran # (Auto) 0.05 H Absolute Nucleated RBC 0.00 Immature Gran % 0 Nucleated RBC % 0 APTT 24.8 D Sodium 144 Potassium 3.5 Chloride 105 Carbon Dioxide 27.6 Anion Gap 11 BUN 14 Creatinine 0.9 Estim Creat Clear Calc 108.8 eGFR > 60 BUN/Creatinine Ratio 16 Glucose 117 H Calculated Osmolality 288 Calcium 9.3 Corrected Calcium 9.3 Phosphorus 3.3 Magnesium 2.0 Total Bilirubin 2.1 H D AST 23 ALT 13 Alkaline Phosphatase 74 Total Protein 7.2 Albumin 4.2 Globulin 3.0 Albumin/Globulin Ratio 1.4 ABG Interpretation ABG results: 04/21/25 04/21/25 04/21/25 09:53 12:36 16:28 ABG pH 6.96 L* 7.15 L* D 7.29 L D ABG pCO2 84 H* 66 H D 48 D ABG pO2 56 L* 80 L D 222 H D ABG HCO3 19 L 23 23 ABG O2 Saturation 75 L 93 100 H ABG Base Excess -15 L -7 L -4 L 04/21/25 04/21/25 04/22/25 18:40 21:40 05:08 ABG pH 7.35 7.33 L 7.35 ABG pCO2 41 46 43 ABG pO2 205 H 93 D 135 H D ABG HCO3 22 24 24 ABG O2 Saturation 101 H 98 100 H ABG Base Excess -3 -2 -2 04/22/25 08:42 ABG pH 7.39 ABG pCO2 40 ABG pO2 79 L D ABG HCO3 24 ABG O2 Saturation 97 ABG Base Excess -1 Quality Measures Quality Measures none Assessment & Plan Assessment Current Active Medications: Generic Name Dose Route Start Last Admin Trade Name Freq PRN Reason Stop Dose Admin Acetaminophen 650 mg 04/21/25 11:27 Acetaminophen 325 Mg Tablet PO 05/21/25 11:26 Q6H PRN Pain (1-3) & Fever >100.4 Atorvastatin Calcium 80 mg 04/22/25 21:00 04/23/25 21:10 Atorvastatin Calcium 20 Mg Tablet PO 05/22/25 20:59 80 mg HS CURRY Administration Carvedilol 12.5 mg 04/22/25 17:30 04/24/25 09:14 Carvedilol 12.5 Mg Tablet PO 05/22/25 17:29 12.5 mg BIDWM CURRY Administration Dextrose 50 ml 04/22/25 03:47 Dextrose 50%-Water Inj 50 Ml Syringe IV 05/22/25 03:46 Q15MIN PRN BG <50 OR BG <70 & pt unresponsive Furosemide 40 mg 04/22/25 09:00 04/24/25 09:14 Furosemide Inj 10 Mg/Ml 4ml Vial IVP 05/22/25 08:59 40 mg QDAY CURRY Administration Lisinopril 20 mg 04/24/25 07:35 04/24/25 09:15 Lisinopril 20 Mg Tablet PO 05/24/25 07:34 20 mg QDAY CURRY Administration Nifedipine 10 mg 04/22/25 14:00 04/24/25 14:38 Nifedipine 10 Mg Capsule PO 05/22/25 13:59 10 mg TID CURRY Administration Pantoprazole Sodium 40 mg 04/21/25 11:30 04/24/25 09:14 Pantoprazole Inj 40 Mg Vial IVP 05/21/25 11:29 40 mg QDAY CURRY Administration Sennosides 1 tab 04/21/25 11:27 Senna Tablet PO 05/21/25 11:26 BID PRN CONSTIPATION Protocol Sertraline HCl 25 mg 04/22/25 16:45 04/24/25 09:15 Sertraline Hcl 25 Mg Tablet PO 05/22/25 16:44 25 mg QDAY CURRY Administration Attending Provider Attestation/Addendum I attest that I was physically present for the evaluation, physical examination, lab and imaging review of the patient with the residents. I discussed the case with the residents and agree with the findings and plans of care as documented above. Edinson Zhao MD
--- NOTE | 2025-04-24 17:07 | ESDS_ITS ---
Planned Discharge Date 04/24/25 DS: Providers Provider Date of admission: 04/21/25 11:27 Primary care physician: CAROL Serrano Admitting Provider: Mark Levine MD Attending Provider on Admission: Edinson Zhao MD Consults: 04/21/25 16:54 [facility] Referral - Knowledge Deficit Routine Comment: Positive screening for knowledge deficit needs. [facility] Referral - Nutrition Routine Comment: Positive screening for nutrition needs. [facility] Referral - Transportation Routine Comment: Positive screening for transportation needs. [facility] Referral - Utilities Routine Comment: Positive screening for utility assistance needs. 04/21/25 17:14 Consult to Cardiology Stat Comment: ?[facility] Consulting Provider: Margaret Ibrahim 04/23/25 20:23 Referral Physical Therapy Routine Comment: Physician Instructions: Attending Provider on DC: Edinson Zhao MD Discharging Provider: Edinson Zhao MD DS: Diagnosis Problem List Completed Was Problem List Reviewed/Reconciled?: Yes Hospital Course Hospital Course Hospital course: In summary 64-year-old male patient with history of HTN, HLD, depression, chronic pain, presenting with worsening dyspnea. In ED he was found hypertensive 174/101, desatting to 88% on room air. BNP was slightly elevated, had mild lactic acidosis. Blood gas with significant acidosis with pH 6.96, [id number], bicarb 19. He had NSTEMI type II with peak troponin 1.594. He had troponin elevation of he required ICU admission and intubation for hypoxemia and flash pulmonary edema. He was started on diuresis and STEROIDS. Additionally, hypertensive emergency was managed with NIFEDIPINE. Additional problems include hyperkalemia of 5.5 which resolved. UA was negative for UTI but did show nephrotic range proteinuria, likely hypertensive. Had mild DINORA with creatinine of 1.4, lactic acidosis 3.0, both resolved with fluids, creatinine 1.0 today. Acidosis also resolved. He had reactive leukocytosis secondary to STEROIDS which is currently resolving. Cardiology team was following. Echo showed EF 50-55%, mildly enlarged RV, trace MR, dilated IVC. Angiogram showed nonobstructive normal epicardial coronary arteries, normal LV systolic function. Recommendations include managing hypertension, and multimodal antihypertensives were ordered.. Lipid panel showed TG 83, cholesterol 159, LDL 92, continued on high-dose statin. Continues on aggressive LASIX, with good response in terms of urine output. All symptoms resolved. No signs of volume overload on discharge. Will discharge to home, to follow-up with cardiology within 1-2 weeks of discharge. PATIENT INSTRUCTIONS: * Follow-up with PCP within 1-2 weeks of discharge. * Follow-up with cardiology, Dr. Ibrahim, within 1-2 weeks of discharge. * STOP taking LISINOPRIL 20 mg daily. * Continue taking FUROSEMIDE 40 mg daily (NEW). * Continue taking CARVEDILOL 12.5 mg twice daily (NEW). * Continue taking LOSARTAN 50 mg daily (NEW). * Continue taking AMLODIPINE 5 mg daily (NEW). * Continue taking MIRALAX and senna daily as needed for constipation. * Continue taking medications as prescribed below. * Return to Emergency Room if you experience abdominal pain, nausea or vomiting. ADMISSION DIAGNOSES: Hx of Acute decompensated heart failure Hx of NSTEMI Hypertension Hyperlipidemia Asymptomatic bacteriuria Hypertensive Emergency (resolved) Hyperkalemia (resolved) Hypomagnesemia (resolved) Acute hypoxic and hypercapnic respiratory failure (resolved) Flash pulmonary edema (resoved) Lactic acidosis (resolved) DINORA (resolved) Depression Case was discussed with attending physician. Janet Martinez DO PGY II This document was transcribed using voice recognition technology. Minor inaccuracies may be present. Time Spent with Patient Time attestation: Total time spent providing and/or coordinating discharge services: Time spent: Less than 30 minutes Quality: Stroke Pt Provided Written Stroke Discharge Instructions: No (STROKE S/S) Exam Vital Signs Temp Pulse Resp BP Pulse Ox O2 Del Method O2 Flow Rate 97.2 F 62 18 143/87 H 92 L Room Air 6 04/24/25 08:00 04/24/25 16:27 04/24/25 16:27 04/24/25 14:38 04/24/25 08:00 04/24/25 08:00 04/22/25 10:35 FiO2 30 04/22/25 21:45 Narrative Exam Narrative Exam General: Alert and oriented x3, No apparent distress. Skin: Intact, Warm, no rashes. HEENT: Normocephalic, Atraumatic. Normal neck range of motion, Supple. Trachea midline. Respiratory: Lungs are clear to auscultation, Breath sounds are equal bilaterally with equal chest expansion. Cardiovascular: RRR, normal S1, S2, No murmurs. Distal pulses 2+ Abdomen: Soft, nontender to palpation, nondistended. Musculoskeletal: No swelling, moving all 4 extremities with FROM Neurologic: Alert, Oriented, No focal deficits. Moving all 4 extremities spontaneously Psych: Thoughts linear and responses appropriate. Discharge Plan Plan Patient Disposition: HOME (Self Care) Patient condition on transfer: Stable Care Plan Goals: * Follow-up with PCP within 1-2 weeks of discharge. * Follow-up with cardiology, Dr. Ibrahim, within 1-2 weeks of discharge. * STOP taking LISINOPRIL 20 mg daily. * Continue taking FUROSEMIDE 40 mg daily (NEW). * Continue taking CARVEDILOL 12.5 mg twice daily (NEW). * Continue taking LOSARTAN 50 mg daily (NEW). * Continue taking AMLODIPINE 5 mg daily (NEW). * Continue taking MIRALAX and senna daily as needed for constipation. * Continue taking medications as prescribed below. * Return to Emergency Room if you experience abdominal pain, nausea or vomiting. Prescriptions/Referrals Prescriptions/Med Rec: New polyethylene glycol 3350 [Miralax] 17 gram/dose powder 4 g PO QDAY PRN (Reason: constipation) Qty: 238 0RF senna 8.6 mg capsule 8.6 mg PO QDAY PRN (Reason: constipation) Qty: 30 0RF carvedilol 12.5 mg Tablet 12.5 mg PO BIDWM Qty: 30 0RF furosemide [Lasix] 40 mg tablet 40 mg PO QDAY Qty: 30 0RF losartan 50 mg tablet 50 mg PO QDAY Qty: 30 0RF amlodipine 5 mg tablet 5 mg PO QDAY 30 Days Qty: 30 0RF Rx Instructions: Take one tablet by mouth every day Continued atorvastatin 20 mg tablet 20 mg PO .q day hydrocodone-acetaminophen 10-325 mg tablet 1 tab PO Q6H PRN (Reason: pain) sertraline 25 mg tablet 25 mg PO .q day Discontinued lisinopril 20 mg tablet 20 mg PO .q day Referrals: Babak Downing FNP [Primary Care Provider] - Patient/Caregiver Discharge Instructions Education Materials: Chest and Lung Problems, Lung Anatomy Print Language: Qatari Stand Alone Forms: Maranda Award Info., Patient Portal Info Letter Discharge Order Discharge Orders: Discharge (Routine); Ordered 04/24/25 Ordered By: Janet Martinez Quality Discharge Quality Measures VTE prophylaxis Attestestation MD Attestation I attest that I was physically present for the evaluation, physical examination, lab and imaging review of the patient with the residents. I discussed the case with the residents and agree with the findings and plans of care as documented above. Edinson Zhao MD
== END 2025-04-24 18:00 | disposition home or self-care (01) | DRG 208 ==
LOC: SERX 10:56 → SERHOLD 11:42 → S2SX 15:31 → S2NX 04-23 04:00
PROVIDERS: Internal Medicine Cardiovascular Disease; Student in an Organized Health Care Education/Training Program; Admitting Provider Internal Medicine Critical Care Medicine; Emergency Provider Emergency Medicine; Visit Provider Internal Medicine
DX: J96.01 Acute respiratory failure with hypoxia (principal); I50.21 Acute systolic (congestive) heart failure; I21.A1 Myocardial infarction type 2; E87.29 Other acidosis; I16.1 Hypertensive emergency; I42.8 Other cardiomyopathies; N17.9 Acute kidney failure, unspecified; I24.89 Other forms of acute ischemic heart disease; J96.02 Acute respiratory failure with hypercapnia; I11.0 Hypertensive heart disease with heart failure; E78.5 Hyperlipidemia, unspecified; F32.A Depression, unspecified; G89.29 Other chronic pain; R82.71 Bacteriuria; Z77.22 Contact with and (suspected) exposure to environmental tobacco smoke (acute) (chronic); E87.5 Hyperkalemia; E83.42 Hypomagnesemia; G47.30 Sleep apnea, unspecified; I25.2 Old myocardial infarction; T38.0X5A Adverse effect of glucocorticoids and synthetic analogues, initial encounter; Z79.899 Other long term (current) drug therapy; Z86.73 Personal history of transient ischemic attack (TIA), and cerebral infarction without residual deficits; Z88.6 Allergy status to analgesic agent; Z91.199 Patient's noncompliance with other medical treatment and regimen due to unspecified reason; Z96.653 Presence of artificial knee joint, bilateral; I25.10 Atherosclerotic heart disease of native coronary artery without angina pectoris
CPT/HCPCS: 36415; 36600; 71045; 76700; 80048; 80053; 80061; 80069; 80307; 80320; 81001; 82248; 82803; 83036; 83605; 83735; 83880; 84100; 84145; 84439; 84443; 84484; 85025; 85379; 85610; 85652; 85730; 86140; 87040; 87081; 87205; 87400; 87811; 93005; 93306; 94002; 94003; 94660; 96365; 96367; 96372; 96375; 97162; 99152; 99291; A4314; A4649; C1769; C1887; C1894; J0171; J0330; J0456; J0461; J0696; J1643; J1644; J1815; J1938; J2250; J2270; J2310; J2371; J2470; J2704; J2919; J3010; J3475; J3480; J3490; J7050; Q9967; A9270; C1725; G0480; J2305